=== PATIENT | male | born 1940 | race Caucasian/White ===

== ENCOUNTER 2019-04-04 11:33 | Inpatient (IN) ==
[2019-04-04] MEDS ORDERED: SODIUM CHLORIDE 0.9% 1000ML 1,000 ML IV ONE (11:56)
--- NOTE | 2019-04-04 12:12 | XRay Report ---
XR chest 1V portable CLINICAL HISTORY: 78 years-old Male presenting with SEPSIS. TECHNIQUE: Portable upright AP view of the chest was obtained. COMPARISON: None. FINDINGS: Median sternotomy wires and mediastinal surgical clips noted. Atherosclerosis of the aortic arch. Car diac silhouette normal in size. Lungs mildly hyperinflated with mild flattening of the diaphragms. Mi ldly heterogeneous lung parenchyma. No focal opacity. No pleural effusion or pneumothorax. Osseous st ructures normal. Upper abdomen normal. IMPRESSION: 1. Findings may suggest underlying emphysema. No focal infiltrate to suggest pneumonia. ACT 112: Negative or not required by law. Electronically signed by: Karthikeyan Ortiz M.D. 04/04/2019 12:10 PM
--- NOTE | 2019-04-04 12:18 | Emergency Department Note ---
Entered by Shyla Echavarria acting as a scribe for Messi Johnson DO History of Present Illness General Chief complaint: Lethargic Stated complaint: Lethargic / [facility] Time Seen by Provider: 04/04/19 11:49 Source: patient Limitations: altered mental status History of Present Illness Provider complaint: Lethargic Onset (ago): week(s) 1 Associated symptoms: no chest pain, no headaches, no nausea/vomiting and no shortness of breath The patient is a 78 year old male who presents to the Emergency Room with complaints of lethargy that began 1 week ago. The patient denies experiencing any chest pain, shortness of breath, nausea/vomiting, or headaches. HPI and ROS limited secondary to altered mental status. Home Medications Home Medications Medication Instructions Recorded Confirmed Type aspirin 325 mg tablet 325 mg PO DAILY 12/30/18 04/04/19 History atenolol 25 mg tablet 25 mg PO DAILY 12/30/18 04/04/19 History cyanocobalamin (vitamin B-12) 100 mcg SQ .COMPLEX 12/30/18 04/04/19 History 1,000 mcg/mL injection solution donepezil 5 mg tablet 5 mg PO HS 12/30/18 04/04/19 History pravastatin 40 mg tablet 40 mg PO HS 12/30/18 04/04/19 History risperidone 1 mg tablet 0.5 mg PO BID tab 12/30/18 04/04/19 History acetaminophen 325 mg capsule 650 mg PO Q4H PRN cap 02/26/19 04/04/19 History ibuprofen 400 mg tablet 400 mg PO Q6H PRN 02/26/19 04/04/19 History cholecalciferol (vitamin D3) 2,000 unit PO DAILY 04/04/19 04/04/19 History [Vitamin D3] diclofenac sodium 1 % TOPICAL BID PRN 04/04/19 04/04/19 History melatonin 10 mg PO HS PRN 04/04/19 04/04/19 History Allergies Allergy/AdvReac Type Severity Reaction Status Date / Time fluvastatin Allergy Unknown Verified 01/04/19 08:04 simvastatin [From Zocor] Allergy Unknown Verified 01/04/19 08:04 atorvastatin Allergy Verified 01/04/19 08:04 Past Med/Surg History Medical History 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 Dyslipidemia Essential hypertension Vitamin B 12 deficiency Surgical History S/P cholecystectomy S/P coronary artery bypass graft x 4 S/P hemorrhoidectomy S/P inguinal hernia repair S/P tonsillectomy Family History Mother , age 75 from lung cancer with brain metastases Lung cancer Father , age 62 of an CA Myocardial infarction Social History Current Living Situation: Long Term current occupational status: retired other: 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 Physical Exam Vital Signs Vital Signs - 24 hr 04/04/19 11:37 04/04/19 11:40 04/04/19 11:42 Temperature 36.4 C L Temperature Source Oral Pulse Rate 88 94 H 90 Pulse Rate from SpO2 Sensor 89 97 H Respiratory Rate 21 21 20 Respiratory Effort / Characteristics Non-Labored Spontaneous Respiratory Depth Normal Respiratory Pattern Regular Blood Pressure 93/63 L 93/63 L Blood Pressure Mean 67 73 Blood Pressure Position Lying Pulse Oximetry 99 99 99 Oxygen Delivery Method Room Air Sepsis Recent Fever Within 48 Hours No Sepsis New/Unexplained Change in Mental Status No Sepsis Action Taken by Nursing No Action Required 04/04/19 11:51 04/04/19 11:52 04/04/19 12:00 Temperature Temperature Source Pulse Rate 86 88 90 Pulse Rate from SpO2 Sensor 95 H 91 H 92 H Respiratory Rate 20 20 24 Respiratory Effort / Characteristics Respiratory Depth Respiratory Pattern Blood Pressure 97/59 L 96/60 L Blood Pressure Mean 71 74 Blood Pressure Position Pulse Oximetry 98 98 97 Oxygen Delivery Method Room Air Sepsis Recent Fever Within 48 Hours Sepsis New/Unexplained Change in Mental Status Sepsis Action Taken by Nursing 04/04/19 12:01 04/04/19 12:26 04/04/19 12:30 Temperature Temperature Source Pulse Rate 88 78 82 Pulse Rate from SpO2 Sensor 89 81 78 Respiratory Rate 24 22 19 Respiratory Effort / Characteristics Respiratory Depth Respiratory Pattern Blood Pressure 95/52 L 94/54 L Blood Pressure Mean 77 68 Blood Pressure Position Pulse Oximetry 98 99 100 Oxygen Delivery Method Sepsis Recent Fever Within 48 Hours Sepsis New/Unexplained Change in Mental Status Sepsis Action Taken by Nursing 04/04/19 12:31 04/04/19 12:43 04/04/19 12:44 Temperature Temperature Source Pulse Rate 79 87 87 Pulse Rate from SpO2 Sensor 81 90 84 Respiratory Rate 18 29 H 24 Respiratory Effort / Characteristics Respiratory Depth Respiratory Pattern Blood Pressure 94/54 L Blood Pressure Mean 68 Blood Pressure Position Pulse Oximetry 99 98 98 Oxygen Delivery Method Sepsis Recent Fever Within 48 Hours Sepsis New/Unexplained Change in Mental Status Sepsis Action Taken by Nursing 04/04/19 13:10 04/04/19 13:13 04/04/19 13:30 Temperature Temperature Source Pulse Rate 85 88 90 Pulse Rate from SpO2 Sensor 78 80 85 Respiratory Rate 28 H 20 20 Respiratory Effort / Characteristics Respiratory Depth Respiratory Pattern Blood Pressure 109/67 105/60 Blood Pressure Mean 79 71 Blood Pressure Position Pulse Oximetry 99 97 99 Oxygen Delivery Method Sepsis Recent Fever Within 48 Hours Sepsis New/Unexplained Change in Mental Status Sepsis Action Taken by Nursing 04/04/19 13:31 04/04/19 14:00 04/04/19 14:01 Temperature Temperature Source Pulse Rate 91 H 74 97 H Pulse Rate from SpO2 Sensor 85 71 Respiratory Rate 16 16 Respiratory Effort / Characteristics Respiratory Depth Respiratory Pattern Blood Pressure 108/59 L Blood Pressure Mean 79 Blood Pressure Position Pulse Oximetry 98 100 Oxygen Delivery Method Sepsis Recent Fever Within 48 Hours Sepsis New/Unexplained Change in Mental Status Sepsis Action Taken by Nursing 04/04/19 14:30 04/04/19 14:31 04/04/19 15:00 Temperature Temperature Source Pulse Rate 79 80 79 Pulse Rate from SpO2 Sensor 83 74 86 Respiratory Rate 18 22 18 Respiratory Effort / Characteristics Respiratory Depth Respiratory Pattern Blood Pressure 100/75 Blood Pressure Mean 81 Blood Pressure Position Pulse Oximetry 99 99 98 Oxygen Delivery Method Sepsis Recent Fever Within 48 Hours Sepsis New/Unexplained Change in Mental Status Sepsis Action Taken by Nursing 04/04/19 15:01 Temperature Temperature Source Pulse Rate 75 Pulse Rate from SpO2 Sensor 77 Respiratory Rate 24 Respiratory Effort / Characteristics Respiratory Depth Respiratory Pattern Blood Pressure Blood Pressure Mean Blood Pressure Position Pulse Oximetry 97 Oxygen Delivery Method Sepsis Recent Fever Within 48 Hours Sepsis New/Unexplained Change in Mental Status Sepsis Action Taken by Nursing GENERAL: Patient was awake and follows commands. He does not appear to be uncomfortable or in pain. EYES: The conjunctivae are clear. The pupils are round and reactive. EARS, NOSE, MOUTH AND THROAT: The nose is without any evidence of any deformity. Mucous membranes are moist. Tongue is midline. NECK: The neck is nontender and supple. RESPIRATORY: Normal respiratory effort is noted there is no evidence of wheezing rhonchi or rales CARDIOVASCULAR: Irregular rhythm was noted to auscultation. There was no definite murmur. GASTROINTESTINAL: The abdomen is soft. Abdomen is nontender. MUSCULOSKELETAL/EXTREMITIES: There is no evidence of gross deformity full range of motion is noted in the hips and shoulders. SKIN: There is no obvious evidence of any rash. Skin was warm and dry. NEUROLOGIC: Patient is oriented to person place but not time or situation. Strength was symmetric but diminished. Course Course 1155: Past medical records reviewed. The patient was evaluated in room C07. A complete history and physical exam was performed. 1438: I spoke with Doris Shore about the patient's case and Dr. Desir- Hospitalist will accept the patient for further evaluation. Administered Medications Discontinued Medications Sodium Chloride (Nss 1000ml) 1,000 mls @ 999 mls/hr IV .Q1H1M ONE Stop: 04/04/19 12:56 Last Infusion: 04/04/19 13:02 Dose: 0 mls/hr Documented by: [id number] Admin: 04/04/19 12:05 Dose: 999 mls/hr Documented by: [id number] Medical Decision Making Differential Diagnosis Differential diagnosis: Etiologies such as viral syndrome, otitis, pharyngitis, pneumonia, influenza, meningitis, urinary tract infection, septic arthritis, soft tissue infectious process, intra-abdominal process, sepsis, bacteremia, as well as others were entertained. Medical Records Attestation: I reviewed the patient's medical records. Home Medications Current Medication List: was personally reviewed by me Laboratory Data Attestation: I reviewed the patient's lab results. Result diagrams: 04/04/19 12:23 04/04/19 12:23 Lab Results 04/04/19 04/04/19 04/04/19 Range/Units 12:23 12:23 12:23 WBC 8.91 (4.8-10.8) K/uL RBC 4.13 L (4.7-6.1) M/uL Hgb 13.3 L (14.0-18.0) g/dL Hct 39.8 L (42-52) % MCV 96.4 (80-100) fL MCH 32.2 (25-34) pg MCHC 33.4 (32-36) g/dL RDW Std Deviation 49.1 H (36.4-46.3) fL RDW Coeff of Pranav 14.0 (11.5-14.5) % Plt Count 145 (130-400) K/uL MPV 10.5 H (7.4-10.4) fL Immature Gran % (Auto) 0.1 % Neut % (Auto) 72.0 % Lymph % (Auto) 16.7 % [place] % (Auto) 10.7 % Eos % (Auto) 0.4 % Baso % (Auto) 0.1 % Immature Gran # (Auto) 0.01 (0.00-0.02) K/uL Neut # (Auto) 6.41 (1.4-6.5) K/uL Lymph # (Auto) 1.49 (1.2-3.4) K/uL [place] # (Auto) 0.95 H (0.11-0.59) K/uL Eos # (Auto) 0.04 (0-0.5) K/uL Baso # (Auto) 0.01 (0-0.2) K/uL PT 13.0 H (9.0-12.0) Seconds INR 1.3 H (0.9-1.1) APTT 29.6 (21.0-31.0) Seconds PTT Ratio 1.1 Sodium 142 (136-145) mmol/L Potassium 3.7 (3.5-5.1) mmol/L Chloride 111 H (98-107) mmol/L Carbon Dioxide 27 (21-32) mmol/L Anion Gap 4.0 (3-11) BUN 22 H (7-18) mg/dl Creatinine 0.88 (0.6-1.4) mg/dl Est Cr Clr Drug Dosing 62.6 ml/min Est GFR ( Amer) 95.4 Est GFR (Non-Af Amer) 82.3 BUN/Creatinine Ratio 24.4 H (10-20) Glucose 94 (70-99) mg/dl Lactate (0.4-2.0) mmol/L Calcium 8.3 L (8.5-10.1) mg/dl Magnesium 1.9 (1.8-2.4) mg/dl Total Bilirubin 0.9 (0.2-1) mg/dl AST 25 (15-37) U/L ALT 19 (12-78) U/L Alkaline Phosphatase 53 (45-117) U/L Troponin I 0.024 (0-0.045) ng/ml Total Protein 4.8 L (6.4-8.2) gm/dl Albumin 2.5 L (3.4-5.0) gm/dl Globulin 2.3 L (2.5-4.0) gm/dl Albumin/Globulin Ratio 1.1 (0.9-2) TSH 1.670 (0.300-4.500) uIu/ml Urine Color Urine Appearance (Clear) Urine pH (4.5-7.5) Ur Specific [place] (1.000-1.030) Urine Protein (Negative) Urine Glucose (UA) (Negative) Urine Ketones (Negative) Urine Blood (Negative) Urine Nitrite (Negative) Urine Bilirubin (Negative) Urine Urobilinogen (Negative) Ur Leukocyte Esterase (Negative) 04/04/19 04/04/19 Range/Units 12:23 12:45 WBC (4.8-10.8) K/uL RBC (4.7-6.1) M/uL Hgb (14.0-18.0) g/dL Hct (42-52) % MCV (80-100) fL MCH (25-34) pg MCHC (32-36) g/dL RDW Std Deviation (36.4-46.3) fL RDW Coeff of Pranav (11.5-14.5) % Plt Count (130-400) K/uL MPV (7.4-10.4) fL Immature Gran % (Auto) % Neut % (Auto) % Lymph % (Auto) % [place] % (Auto) % Eos % (Auto) % Baso % (Auto) % Immature Gran # (Auto) (0.00-0.02) K/uL Neut # (Auto) (1.4-6.5) K/uL Lymph # (Auto) (1.2-3.4) K/uL [place] # (Auto) (0.11-0.59) K/uL Eos # (Auto) (0-0.5) K/uL Baso # (Auto) (0-0.2) K/uL PT (9.0-12.0) Seconds INR (0.9-1.1) APTT (21.0-31.0) Seconds PTT Ratio Sodium (136-145) mmol/L Potassium (3.5-5.1) mmol/L Chloride (98-107) mmol/L Carbon Dioxide (21-32) mmol/L Anion Gap (3-11) BUN (7-18) mg/dl Creatinine (0.6-1.4) mg/dl Est Cr Clr Drug Dosing ml/min Est GFR ( Amer) Est GFR (Non-Af Amer) BUN/Creatinine Ratio (10-20) Glucose (70-99) mg/dl Lactate 1.9 (0.4-2.0) mmol/L Calcium (8.5-10.1) mg/dl Magnesium (1.8-2.4) mg/dl Total Bilirubin (0.2-1) mg/dl AST (15-37) U/L ALT (12-78) U/L Alkaline Phosphatase (45-117) U/L Troponin I (0-0.045) ng/ml Total Protein (6.4-8.2) gm/dl Albumin (3.4-5.0) gm/dl Globulin (2.5-4.0) gm/dl Albumin/Globulin Ratio (0.9-2) TSH (0.300-4.500) uIu/ml Urine Color Dark Yellow Urine Appearance Clear (Clear) Urine pH 5.0 (4.5-7.5) Ur Specific [place] 1.027 (1.000-1.030) Urine Protein Negative (Negative) Urine Glucose (UA) Negative (Negative) Urine Ketones Trace H (Negative) Urine Blood Negative (Negative) Urine Nitrite Negative (Negative) Urine Bilirubin Negative (Negative) Urine Urobilinogen Negative (Negative) Ur Leukocyte Esterase Negative (Negative) Imaging Data Radiologist's Impression: Radiology results as stated below per my review and the radiologist's interpretation: XR chest 1V portable CLINICAL HISTORY: 78 years-old Male presenting with SEPSIS. TECHNIQUE: Portable upright AP view of the chest was obtained. COMPARISON: None. FINDINGS: Median sternotomy wires and mediastinal surgical clips noted. Atherosclerosis of the aortic arch. Cardiac silhouette normal in size. Lungs mildly hyperinflated with mild flattening of the diaphragms. Mildly heterogeneous lung parenchyma. No focal opacity. No pleural effusion or pneumothorax. Osseous structures normal. Upper abdomen normal. IMPRESSION: 1. Findings may suggest underlying emphysema. No focal infiltrate to suggest pneumonia. ACT 112: Negative or not required by law. Electronically signed by: Karthikeyan Ortiz M.D. 04/04/2019 12:[address] head/brain wo con CLINICAL HISTORY: 78 years-old Male presenting with altered mental status, low blood pressure. TECHNIQUE: Multidetector CT imaging of the head was performed without the use of intravenous contrast. IV contrast: None. One or more dose lowering techniques were used consistent with the principles of ALARA (as low as reasonably achievable), including automatic exposure control, mA or kV adjustment to individual patient size, and/or use of iterative reconstruction. COMPARISON: Brain MR from 01/26/2019. CT DOSE (mGy.cm): The estimated cumulative dose is 1019.07 mGy.cm. FINDINGS: Data Network Architect topogram: Unremarkable. Proportional ventricular and sulcal prominence, likely age-related parenchymal volume loss. No hemorrhage. Periventricular and subcortical white matter hypoattenuation, nonspecific but likely indicative of chronic small vessel ischemic change. No acute territorial infarct. No mass effect or midline shift. No extra-axial fluid collection. Paranasal sinuses and mastoid air cells clear. Calvarium intact. IMPRESSION: 1. Chronic small vessel ischemic change. No acute intracranial abnormality. ACT 112: Negative or not required by law. Electronically signed by: Karthikeyan Ortiz M.D. 04/04/2019 1:[address] abd pelvis wo con CLINICAL HISTORY: 78 years-old Male presenting with low BP, altered mental status. TECHNIQUE: Multidetector CT of the abdomen and pelvis was performed without the use of intravenous contrast. IV contrast: None. One or more dose lowering techniques were used consistent with the principles of ALARA (as low as reasonably achievable), including automatic exposure control, mA or kV adjustment to individual patient size, and/or use of iterative reconstruction. COMPARISON: None. CT DOSE (mGy.cm): The estimated cumulative dose is 1019.07. FINDINGS: Data Network Architect topogram: Unremarkable. Lung bases: Top normal heart size. Postsurgical changes of coronary artery bypass grafting with median sternotomy noted. Coronary artery and aortic valve calcification. Papillary muscle calcification may also be present. No pericardial or pleural effusion. Minimal dependent changes likely atelectasis. Liver: Normal morphology. Normal density. Biliary: Mild biliary ductal prominence likely a reservoir effect in the post cholecystectomy state. Gallbladder surgically absent. Pancreas: Mild parenchymal atrophy. Spleen: Normal noncontrast appearance. Adrenal glands: Normal noncontrast appearance. Kidneys and ureters: Normal noncontrast appearance of the renal parenchyma. Extrarenal pelvis is noted with mild left pelviectasis. No nephrolithiasis. Ureters nondistended. Bladder: Incompletely evaluated secondary to underdistention. Pelvic organs: Prostate enlargement likely secondary to benign prostatic hyperplasia. Bowel: Moderate stool burden in the rectum, which is distended though without wall thickening or perirectal fat infiltration. Mild diverticulosis of the proximal sigmoid and distal descending colon without wall thickening or pericolonic inflammatory change. Mild stool burden in the transverse and right colon. Diverticulosis at the hepatic flexure. The appendix is normal. No bowel obstruction. Peritoneal cavity: No free fluid or intraperitoneal gas. Lymph nodes: No gross lymphadenopathy allowing for noncontrast technique. Vasculature: Atherosclerosis of the normal caliber abdominal aorta. Abdominal wall: Normal. Musculoskeletal: Degenerative changes of the spine. Degenerative changes of the sacroiliac joints. IMPRESSION: 1. Allowing for noncontrast technique, no acute intra-abdominal pathology. Prostatomegaly. 2. Diverticulosis coli. No diverticulitis. 3. Moderate stool burden in the rectum. Consider disimpaction. Mild constipation elsewhere. ACT 112: Negative or not required by law. Electronically signed by: Karthikeyan Ortiz M.D. 04/04/2019 1:21 PM ECG Data Indication: + weakness Rate (beats per minute): 93 Rhythm: + atrial fibrillation ECG ST segments: + Nonspecific ST abnormalities ECG Findings: no PVCs Comparison ECG Date: no prior available Blood Pressure Blood Pressure Findings: Low blood pressure Blood Pressure Disposition: further management by hospitalist GUI [place] The patient is a 78-year-old male who presented to the emergency department from his personal retirement for an evaluation of altered mental status and generalized weakness. The patient was found to be in atrial fibrillation as well as had hypotension prior to arrival. The patient was treated with IV fluids prior to arrival and further IV hydration was given in the emergency dep artment as the patient's blood pressure continued to be low. A septic work-up was undertaken. No definite source for infection could be found. The patient continued to be in atrial fibrillation. He was also found to have significant stool burden on CAT scan of the abdomen and pelvis. I discussed the patient's laboratory and radiographic studies with the on-call [facility] hospitalist group. They have agreed to evaluate the patient in the emergency department for further management and disposition. The patient's blood pressure did improve with IV hydration. Impression & Plan Acute hypotension, Altered mental status, Constipation, Atrial fibrillation Discharge Plan Visit Data Chief Complaint: Lethargic Stated Complaint[facility] Provider: Messi Johnson Discharge Problem: Acute hypotension, Altered mental status, Constipation, Atrial fibrillation Forms Stand Alone Forms: My [facility] Prescriptions Prescriptions: No Action atenolol 25 mg tablet 25 mg PO DAILY RF: 0 cyanocobalamin (vitamin B-12) 1,000 mcg/mL solution 100 mcg SQ .COMPLEX RF: 0 pravastatin 40 mg tablet 40 mg PO HS RF: 0 aspirin 325 mg tablet 325 mg PO DAILY RF: 0 donepezil 5 mg tablet 5 mg PO HS RF: 0 risperidone 1 mg tablet 0.5 mg PO BID RF: 0 acetaminophen 325 mg capsule 650 mg PO Q4H PRN (Reason: Pain and Fever) RF: 0 ibuprofen 400 mg tablet 400 mg PO Q6H PRN (Reason: Pain and Inflammation) RF: 0 diclofenac sodium 1 % Gel 1 % TOPICAL BID PRN (Reason: Arthritis Pain) RF: 0 cholecalciferol (vitamin D3) [Vitamin D3] 2,000 unit Tablet 2,000 unit PO DAILY RF: 0 melatonin 10 mg Tablet 10 mg PO HS PRN (Reason: Insomnia) RF: 0 Discharge Problem: Altered mental status Qualifiers: Altered mental status type: unspecified Qualified Code(s): R41.82 - Altered mental status, unspecified Constipation Qualifiers: Constipation type: unspecified constipation type Qualified Code(s): K59.00 - Constipation, unspecified Atrial fibrillation Qualifiers: Atrial fibrillation type: unspecified Qualified Code(s): I48.91 - Unspecified atrial fibrillation The scribe's documentation has been prepared under my direction and personally reviewed by me in its entirety. I confirm that the note above accurately reflects all work, treatment, procedures, and medical decision making performed by me.
[2019-04-04 12:31] LABS: Basophils # (auto) 0.01 K/uL (0-0.2); Basophils % (auto) 0.1 %; Eosinophils # (auto) 0.04 K/uL (0-0.5); Eosinophils % (auto) 0.4 %; Hematocrit (blood only) 39.8 % (42-52); Hemoglobin 13.3 g/dL (14.0-18.0); Immature Granulocytes # (auto) 0.01 K/uL (0.00-0.02); Immature Granulocytes % (auto) 0.1 %; Lymphocytes # (auto) 1.49 K/uL (1.2-3.4); Lymphocytes % (auto) 16.7 %; Mean Corpuscular Hemoglobin 32.2 pg (25-34); Mean Corpuscular Hgb Conc 33.4 g/dL (32-36); Mean Corpuscular Volume 96.4 fL (80-100); Mean Platelet Volume 10.5 fL (7.4-10.4); Monocytes # (auto) 0.95 K/uL (0.11-0.59); Monocytes % (auto) 10.7 %; Neutrophils # (auto) 6.41 K/uL (1.4-6.5); Platelet Count 145 K/uL (130-400); RDW Standard Deviation 49.1 fL (36.4-46.3); Red Blood Count 4.13 M/uL (4.7-6.1); White Blood Count 8.91 K/uL (4.8-10.8)
[2019-04-04 12:47] LABS: INR 1.3 (0.9-1.1); Partial Thromboplastin Ratio 1.1; Partial Thromboplastin Time 29.6 Seconds (21.0-31.0)
[2019-04-04 12:54] LABS: Albumin Level 2.5 gm/dl (3.4-5.0); BUN Creatinine Ratio 24.4 (10-20); Calcium 8.3 mg/dl (8.5-10.1); Creatinine Clr Calc Pharmacy 62.6 ml/min; Est GFR (African American) 95.4; Est GFR (Non-African American) 82.3; Magnesium 1.9 mg/dl (1.8-2.4); Potassium 3.7 mmol/L (3.5-5.1)
[2019-04-04 13:00] LABS: Appearance Urine Clear (Clear); Blood Urine Negative (Negative); Color Urine Dark Yellow; Glucose Urine UA Negative (Negative); Ketones Urine Trace (Negative); Leukocyte Esterase Urine Negative (Negative); Nitrite Urine Negative (Negative); Protein Urine Negative (Negative); Specific Gravity Urine 1.027 (1.000-1.030); Urobilinogen Urine Negative (Negative)
[2019-04-04 13:05] LABS: Albumin Globulin Ratio 1.1 (0.9-2); Bilirubin,Total 0.9 mg/dl (0.2-1); Globulin 2.3 gm/dl (2.5-4.0); Thyroid Stimulating Hormone 1.67 uIu/ml (0.300-4.500); Total Protein 4.8 gm/dl (6.4-8.2); Troponin I 0.024 ng/ml (0-0.045)
--- NOTE | 2019-04-04 13:16 | CT Scan Report ---
CT head/brain wo con CLINICAL HISTORY: 78 years-old Male presenting with altered mental status, low blood pressure. TECHNIQUE: Multidetector CT imaging of the head was performed without the use of intravenous contrast . IV contrast: None. One or more dose lowering techniques were used consistent with the principles of ALARA (as low as reasonably achievable), including automatic exposure control, mA or kV adjustment t o individual patient size, and/or use of iterative reconstruction. COMPARISON: Brain MR from 01/26/2019. CT DOSE (mGy.cm): The estimated cumulative dose is 1019.07 mGy.cm. FINDINGS: [employer] Frame Wirer topogram: Unremarkable. Proportional ventricular and sulcal prominence, likely age-related parenchymal volume loss. No hemorr hanna. Periventricular and subcortical white matter hypoattenuation, nonspecific but likely indicative of chronic small vessel ischemic change. No acute territorial infarct. No mass effect or midline rudy ft. No extra-axial fluid collection. Paranasal sinuses and mastoid air cells clear. Calvarium intact. IMPRESSION: 1. Chronic small vessel ischemic change. No acute intracranial abnormality. ACT 112: Negative or not required by law. Electronically signed by: Karthikeyan Ortiz M.D. 04/04/2019 1:14 PM
[2019-04-04 13:19] LABS: Bilirubin Urine Negative (Negative); Ictotest Urine Negative (Negative)
--- NOTE | 2019-04-04 13:23 | CT Scan Report ---
CT abd pelvis wo con CLINICAL HISTORY: 78 years-old Male presenting with low BP, altered mental status. TECHNIQUE: Multidetector CT of the abdomen and pelvis was performed without the use of intravenous co ntrast. IV contrast: None. One or more dose lowering techniques were used consistent with the princip les of ALA (as low as reasonably achievable), including automatic exposure control, mA or kV adjust ment to individual patient size, and/or use of iterative reconstruction. COMPARISON: None. CT DOSE (mGy.cm): The estimated cumulative dose is 1019.07. FINDINGS: Tufter Operator topogram: Unremarkable. Lung bases: Top normal heart size. Postsurgical changes of coronary artery bypass grafting with media n sternotomy noted. Coronary artery and aortic valve calcification. Papillary muscle calcification ma y also be present. No pericardial or pleural effusion. Minimal dependent changes likely atelectasis. Liver: Normal morphology. Normal density. Biliary: Mild biliary ductal prominence likely a reservoir effect in the post cholecystectomy state. Gallbladder surgically absent. Pancreas: Mild parenchymal atrophy. Spleen: Normal noncontrast appearance. Adrenal glands: Normal noncontrast appearance. Kidneys and ureters: Normal noncontrast appearance of the renal parenchyma. Extrarenal pelvis is note d with mild left pelviectasis. No nephrolithiasis. Ureters nondistended. Bladder: Incompletely evaluated secondary to underdistention. Pelvic organs: Prostate enlargement likely secondary to benign prostatic hyperplasia. Bowel: Moderate stool burden in the rectum, which is distended though without wall thickening or debbi rectal fat infiltration. Mild diverticulosis of the proximal sigmoid and distal descending colon with out wall thickening or pericolonic inflammatory change. Mild stool burden in the transverse and right colon. Diverticulosis at the hepatic flexure. The appendix is normal. No bowel obstruction. Peritoneal cavity: No free fluid or intraperitoneal gas. Lymph nodes: No gross lymphadenopathy allowing for noncontrast technique. Vasculature: Atherosclerosis of the normal caliber abdominal aorta. Abdominal wall: Normal. Musculoskeletal: Degenerative changes of the spine. Degenerative changes of the sacroiliac joints. IMPRESSION: 1. Allowing for noncontrast technique, no acute intra-abdominal pathology. Prostatomegaly. 2. Diverticulosis coli. No diverticulitis. 3. Moderate stool burden in the rectum. Consider disimpaction. Mild constipation elsewhere. ACT 112: Negative or not required by law. Electronically signed by: Karthikeyan Ortiz M.D. 04/04/2019 1:21 PM
--- NOTE | 2019-04-04 15:59 | History & Physical Report ---
Date of Service April 04, 2019 Assessment & Plan (1) Weakness: 78-year-old male with history of dementia, CAD/CABG, mild systolic CHF, hypertension, dyslipidemia presenting with weakness and lethargy times few days. History obtained from [facility] staff, ED staff. Awaiting patient's daughter's arrival to gather more information. Weakness, lethargy Likely secondary to dehydration, underlying new onset A. fib --Patient presented with hypotension, which seems to have responded to IV fluid boluses, 2 L of NSS so far We will continue to provide D5 NSS with potassium, continue to monitor closely in telemetry unit --Patient is afebrile, no leukocytosis, no focus of infection identified at this time Blood cultures: Pending Check procalcitonin We will hold off on antibiotics at this time unless procalcitonin is elevated --Check ammonia level --Check brain MRI in light of new onset A. fib, rule out CVA --Need to verify with [facility] if any medication changes have been done recently --Management of new onset A. fib noted below Hypotension --Likely from volume depletion, from poor oral intake --Responding to IV fluid challenge, management per #1 --No signs of sepsis at this time, no focus of infection identified as well Echo ordered New onset atrial fibrillation, rate controlled --No history of A. fib --Check echocardiogram --Continue atenolol 25 mg daily --Patient's chads vasc2 score is at least 4: We will verify with patient's family if he has any history of bleeding if not, will initiate heparin drip --Cardiology service consulted, he follows with Dr. Mccall Moderate stool burden --CT abdomen and pelvis: Moderate stool burden in the rectum. Consider disimpaction. Mild constipation elsewhere. --We will order tapwater enema and daily laxatives History of CAD, CABG --Patient denies cardiac symptoms --Troponin negative --Resume aspirin 325 mg p.o. daily, will reduce to 81 mg daily as heparin is being initiated Continue atenolol, pravastatin History of mild systolic CHF --Based on echocardiogram September 2018 --Currently on the dry side, monitor while on IV fluids Dementia --need to verify medications with [facility] --Continue donepezil, risperidone Memantine listed on [facility] records, verify with [facility] facility DVT prophylaxis Patient to be started on heparin drip, if not, start Lovenox subcutaneous CODE STATUS Full code for now, needs to be verified space with family Disposition Resident of [facility], anticipate to return back to [facility] when medically stable We will order PT/OT evaluation-patient apparently was able to perform most activities of daily living independently before this episode Dr. Isi Orlando will be taking over the patient's care starting tomorrow April 05, 2019 History of Present Illness Patient is a 78-year-old male with a history of CAD/CABG, mild systolic CHF, hypertension, dyslipidemia, dementia Presented with weakness and lethargy. History obtained from ED physician and RN, attempted to call [facility] twice as well as patient's family but they are not available at this time, will continue to reach them. Apparently patient has been observed to be weak and lethargic for the past few days. He used to be mostly independent with activities of daily living but for the past few days have been noted to be sluggish, weak. EMS was called today, blood pressure systolic upon arrival was apparently in the 70s, patient was given 1 L of IV fluid bolus. At the ED, blood pressure was systolic 90s, was given another 1 L of IV fluid bolus, with improvement of the systolic BP 109. Hospitalist consulted for admission On exam, the patient is seen sleeping but easily awakened with verbal stimuli. He is not oriented x3, but per RN's report from [facility] this is his baseline. He is conversant, tries to answer questions, speaks in sentences with no effort. He denies having any active shortness of breath, chest pain, headache, dizziness, focal weakness or numbness, abdominal pain. He denies any other symptoms states he feels fine overall. CT head: No acute CVA EKG shows atrial fibrillation, rate controlled. Patient does not have any history of atrial fibrillation. Primary Care Provider: [facility] Allergies Allergy/AdvReac Type Severity Reaction Status Date / Time fluvastatin Allergy Unknown Verified 01/04/19 08:04 simvastatin [From Zocor] Allergy Unknown Verified 01/04/19 08:04 atorvastatin Allergy Verified 01/04/19 08:04 Home Medications Home Medications Medication Instructions Recorded Confirmed Type aspirin 325 mg tablet 325 mg PO DAILY 12/30/18 04/04/19 History atenolol 25 mg tablet 25 mg PO DAILY 12/30/18 04/04/19 History cyanocobalamin (vitamin B-12) 100 mcg SQ .COMPLEX 12/30/18 04/04/19 History 1,000 mcg/mL injection solution donepezil 5 mg tablet 5 mg PO HS 12/30/18 04/04/19 History pravastatin 40 mg tablet 40 mg PO HS 12/30/18 04/04/19 History risperidone 1 mg tablet 0.5 mg PO BID tab 12/30/18 04/04/19 History acetaminophen 325 mg capsule 650 mg PO Q4H PRN cap 02/26/19 04/04/19 History ibuprofen 400 mg tablet 400 mg PO Q6H PRN 02/26/19 04/04/19 History cholecalciferol (vitamin D3) 2,000 unit PO DAILY 04/04/19 04/04/19 History [Vitamin D3] diclofenac sodium 1 % TOPICAL BID PRN 04/04/19 04/04/19 History melatonin 10 mg PO HS PRN 04/04/19 04/04/19 History Past Med/Surg History Medical History Atherosclerotic heart disease of [place] coronary artery without angina pectoris 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 Dyslipidemia Essential hypertension Vitamin B 12 deficiency Surgical History S/P cholecystectomy S/P coronary artery bypass graft x 4 S/P hemorrhoidectomy S/P inguinal hernia repair S/P tonsillectomy Family History Mother , age 75 from lung cancer with brain metastases Lung cancer Father , age 62 of an MD Myocardial infarction Social History Current Living Situation: [facility] current occupational status: retired other: 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 Feels Safe at Home: Yes Smoking Status: Former smoker Tobacco Type: cigarettes and smokeless tobacco ; Hx Alcohol Use: No Review of Systems Review of Systems: All systems reviewed & are unremarkable except as noted in HPI & below Physical Exam Physical Exam: General- oriented x 0, not in distress, speaks in sentences with no effort or accessory muscle use Head- atraumatic Eyes- PERRL, EOMI, anicteric ENT- oropharynx clear Positive dry oral mucosa Neck- supple, no JVD, no adenopathy, no thyromegaly; carotids +2/2, no bruits appreciated Lungs- clear to auscultation bilaterally, no rales/wheezes Heart- normal rate, irregularly irregular rhythm; no murmur, no gallop, no rub appreciated Abdomen- normal bowel sounds, nondistended, soft, nontender, no masses or hepatosplenomegaly Extremities- no pretibial edema, no calf tenderness; peripheral pulses intact Neuro- alert, oriented x 0; CN 2-12 grossly intact; motor 5/5 bilaterally;sensation 100% on all extremities; no other gross focal neurologic deficits Skin- warm & dry Results & Data Vital Signs (Past 12 Hours) Vital Signs Temp Pulse Resp BP Pulse Ox 04/04/19 15:01 75 24 97 04/04/19 15:00 79 18 100/75 98 04/04/19 14:31 80 22 99 04/04/19 14:30 79 18 99 04/04/19 14:01 97 H 04/04/19 14:00 74 16 108/59 L 100 04/04/19 13:31 91 H 16 98 04/04/19 13:30 90 20 105/60 99 04/04/19 13:13 88 20 109/67 97 04/04/19 13:10 85 28 H 99 04/04/19 12:44 87 24 98 04/04/19 12:43 87 29 H 94/54 L 98 04/04/19 12:31 79 18 99 04/04/19 12:30 82 19 94/54 L 100 04/04/19 12:26 78 22 95/52 L 99 04/04/19 12:01 88 24 98 04/04/19 12:00 90 24 96/60 L 97 04/04/19 11:52 88 20 98 04/04/19 11:51 86 20 97/59 L 98 04/04/19 11:42 36.4 C L 90 20 93/63 L 99 04/04/19 11:40 94 H 21 99 04/04/19 11:37 88 21 93/63 L 99 Code Status & VTE Plan Code Status Full code-needs to be verified with family VTE Prophylaxis Plan VTE Prophylaxis will be ordered: Yes
[2019-04-04] MEDS ORDERED: Heparin IV Low Dose *NO* Bolus IV ONE (17:16)
[2019-04-04] MEDS ORDERED: HEPARIN SODIUM/DEXTROSE 25,000 UNITS/500 ML BAG IV SCH (17:30)
[2019-04-04] MEDS: D5NSS + 20MEQ KCL 20 MEQ/1,000 ML BAG IV SCH (18:11)
[2019-04-04 18:16] LABS: Basophils # (auto) 0.02 K/uL (0-0.2); Basophils % (auto) 0.2 %; Eosinophils # (auto) 0.11 K/uL (0-0.5); Eosinophils % (auto) 1.3 %; Hematocrit (blood only) 43.1 % (42-52); Hemoglobin 14.3 g/dL (14.0-18.0); Immature Granulocytes # (auto) 0.01 K/uL (0.00-0.02); Immature Granulocytes % (auto) 0.1 %; Lymphocytes # (auto) 3.09 K/uL (1.2-3.4); Lymphocytes % (auto) 36.4 %; Mean Corpuscular Hemoglobin 31.9 pg (25-34); Mean Corpuscular Hgb Conc 33.2 g/dL (32-36); Mean Corpuscular Volume 96.2 fL (80-100); Mean Platelet Volume 10.9 fL (7.4-10.4); Monocytes # (auto) 0.77 K/uL (0.11-0.59); Monocytes % (auto) 9.1 %; Neutrophils % (auto) 52.9 %; Platelet Count 160 K/uL (130-400); RDW Coefficient of Variation 13.9 % (11.5-14.5); RDW Standard Deviation 48.8 fL (36.4-46.3); Red Blood Count 4.48 M/uL (4.7-6.1)
[2019-04-04 18:31] LABS: Calcium 8.7 mg/dl (8.5-10.1); Creatinine Clr Calc Pharmacy 76.9 ml/min; Est GFR (African American) 104.2; Est GFR (Non-African American) 89.9
[2019-04-04] MEDS: DONEPEZIL HCL 5 MG TAB PO SCH (20:13)
[2019-04-04] MEDS: risperiDONE 0.5 MG TABLET PO SCH (20:14)
[2019-04-04] MEDS: PRAVASTATIN SOD 40 MG TAB PO SCH (20:14)
--- NOTE | 2019-04-04 21:54 | Magnetic Resonance Report ---
MR brain wo con CLINICAL HISTORY: 78 years-old Male presenting with LETHARGY, R/O CVA. TECHNIQUE: Multisequence, multiplanar MR imaging of the brain was performed without the use of intrav enous contrast. IV contrast: None. COMPARISON: Noncontrast CT head from earlier today and brain MR from 01/26/2019. FINDINGS: Localizer images: Unremarkable. Bone marrow signal intensity within the calvarium within normal limits. Normal midline sagittal structures. Proportional ventricular and sulcal prominence, likely age-relate d parenchymal volume loss. No mass effect or midline shift. No restricted diffusion or hemorrhage. Pe riventricular and subcortical white matter T2/FLAIR hyperintensity, nonspecific but likely indicative of chronic small vessel ischemic change. No extra-axial fluid collection. Loss of the signal flow void within the left transverse sinus, sigmo id sinus, and left jugular bulb. Bilateral [place] lenses are absent. IMPRESSION: 1. Chronic small vessel ischemic change. No acute intracranial abnormality. 2. The lack of flow void within the left transverse and sigmoid sinus and jugular bulb are presumabl y related to slow flow. If there is high clinical index of suspicion for dural venous sinus thrombosi s, noncontrast MRV could be obtained. ACT 112: Negative or not required by law. Electronically signed by: Karthikeyan Ortiz M.D. 04/04/2019 9:52 PM
[2019-04-05 00:49] LABS: Partial Thromboplastin Ratio 1.5; Partial Thromboplastin Time 39.9 Seconds (21.0-31.0)
[2019-04-05] MEDS ORDERED: HEPARIN IV BOLUS 4,000 UNITS in SYRINGE 0 ML IV ONE (01:30)
[2019-04-05] MEDS: D5NSS + 20MEQ KCL 20 MEQ/1,000 ML BAG IV SCH ×2 (06:05→13:58)
[2019-04-05 07:36] LABS: Basophils # (auto) 0.02 K/uL (0-0.2); Basophils % (auto) 0.2 %; Eosinophils # (auto) 0.13 K/uL (0-0.5); Eosinophils % (auto) 1.6 %; Hematocrit (blood only) 44.5 % (42-52); Immature Granulocytes # (auto) 0.02 K/uL (0.00-0.02); Immature Granulocytes % (auto) 0.2 %; Lymphocytes # (auto) 2.74 K/uL (1.2-3.4); Lymphocytes % (auto) 32.8 %; Mean Corpuscular Hemoglobin 32.5 pg (25-34); Mean Corpuscular Hgb Conc 33.7 g/dL (32-36); Mean Corpuscular Volume 96.3 fL (80-100); Mean Platelet Volume 10.7 fL (7.4-10.4); Monocytes # (auto) 0.88 K/uL (0.11-0.59); Monocytes % (auto) 10.5 %; Neutrophils # (auto) 4.57 K/uL (1.4-6.5); Neutrophils % (auto) 54.7 %; Platelet Count 138 K/uL (130-400); RDW Coefficient of Variation 13.9 % (11.5-14.5); RDW Standard Deviation 49.1 fL (36.4-46.3); Red Blood Count 4.62 M/uL (4.7-6.1); White Blood Count 8.36 K/uL (4.8-10.8)
[2019-04-05] MEDS: risperiDONE 0.5 MG TABLET PO SCH ×2 (07:56→21:32)
[2019-04-05 07:58] LABS: Partial Thromboplastin Ratio 3.5
[2019-04-05 08:15] LABS: BUN Creatinine Ratio 17.7 (10-20); Calcium 9.3 mg/dl (8.5-10.1); Creatinine Clr Calc Pharmacy 84.8 ml/min; Est GFR (African American) 107.3; Est GFR (Non-African American) 92.6; Potassium 3.8 mmol/L (3.5-5.1)
--- NOTE | 2019-04-05 08:37 | Neurology Consultation ---
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 The etiology of the demen tia is likely mixed, primarily from degenerative (senile dementia of the Alzheimer's type) as well as vascular issues. His mini-mental status examination in December was 10/30 points. He has had some side effects to memantine and this has been stopped. I am not sure if donepezil is doing much for him also. Patient has parkinsonism which I believe was secondary to Risperdal and his underlying degenerative condition. Back in December his Risperdal was 1 mg twice a day and it was lowered to 0.5 mg twice a day. Currently I believe his parkinsonism is improved now compared to December having less rigidity and bradykinesia. Patient had some generalized weakness on admission. I believe this was secondary to his hypotension and new onset atrial fibrillation. Today he is quite strong with no focal neurologic findings or meningeal signs. His lethargy is improved with hydration and elevated blood pressure. He is on anticoagulation for atrial fibrillation. MRI of the brain shows atrophy and old ischemia but no acute stroke. The slow flow noted in the transverse and sigmoid sinuses was likely secondary to his very low blood pressure and is probably better. There is no sign of venous infarct. Recommendations: 1. Keep hydrated and keep his mean arterial pressure between 95 and 100. 2. Discontinue donepezil, as I am not certain this is doing anything for him it may be adding to side effects. 3. Patient has known behavioral issues, and since his parkinsonism is improved on the lower dose of Risperdal, I would keep the Risperdal dose the same for now. 4. Increase activity as able including physical therapy. 5. Cardiology has been consulted and we need to convert from heparin to an oral anticoagulant in lieu of his atrial fibrillation. 6. Consider B12 level as he has a history of B12 deficiency. Otherwise, I have no further neurologic recommendations to make at this time. I can follow him as an outpatient if desired. Overall, I spent a total of 75 minutes with this case including review of records,, review of MRI films, direct evaluation the patient at bedside, and discussing the case with RN at bedside and Dr. Oralndo including differential diagnosis and treatment options. History of Present Illness Reason for Consultation: 78-year-old, who I was asked to see at the request of Dr. Desir, for neurologic consultation regarding altered mental status Requesting Physician: Dr. Desir Attending Physician: Isi Orlando, DO History of Present Illness I 1st saw this patient January 04, 2019. Please see my complete history and physical from that date. The patient has been having cognitive issues since his coronary artery bypass graft procedure in 2000, according to his daughter from whom most of the history was obtained when I 1st saw him. This became mildly progressive over time being a little more significant about 6-7 years ago. By the fall of 2017 his dementia was significant and he was having some confusion and hallucinations. After an admission in May of 2018 for acute confusion, he moved from [facility] to the [facility] to be closer to his daughter. He lives in [facility]. He does have some behavioral issues but this is controlled with medication. At the time I saw him in December she had an advanced dementia with a mini-mental status examination of 10/30 points. Physical examination was remarkable for rigidity, bradykinesia, and gait disturbance all consistent with a parkinsonism. I suspected this was due to his Risperdal (which was 1 mg twice daily at that time). He was on donepezil 5 mg at bedtime and memantine 5 mg once a day. I increases memantine 5 mg twice daily. An MRI of the brain was obtained which showed [id number] generalized atrophy and old small vessel ischemic disease. The patient had some increasing fatigue/as lethargy in January of 2019. I stopped memantine and routine labs were unremarkable. Apparently the patient has been becoming more lethargic over the last week. He arrived to the emergency room on April 04 at 1137 with a temperature of 36.4, pulse 88 and irregular (noted to be in AFib), respiratory rate 21, blood pressure 93/63, and O2 saturation 99%. He remained in atrial fibrillation. He was described as being able to follow commands but was oriented only to person. Chest x-ray showed some mild COPD changes CT scan of the head was unremarkable except for old ischemia CT scan of the abdomen and pelvis showed diverticulosis and stool retention CBC showed mild anemia and Chem profile was largely unremarkable. TSH, urinalysis, and lactate were unremarkable. MRI of the brain showed mild old small vessel ischemic disease and generalized atrophy as before (no change from January). There was slow venous flow noted in the left transverse and sigmoid sinuses. Patient was given fluids and anticoagulation with heparin. Blood pressure this morning is 124/86. His pulse varies from 80s to 90s to 120s. He remains in atrial fibrillation and he is afebrile. Allergies Allergy/AdvReac Type Severity Reaction Status Date / Time fluvastatin Allergy Unknown Verified 01/04/19 08:04 simvastatin [From Zocor] Allergy Unknown Verified 01/04/19 08:04 atorvastatin Allergy Verified 01/04/19 08:04 Home Medications Home Medications Medication Instructions Recorded Confirmed Type aspirin 325 mg tablet 325 mg PO DAILY 12/30/18 04/04/19 History atenolol 25 mg tablet 25 mg PO DAILY 12/30/18 04/04/19 History cyanocobalamin (vitamin B-12) 100 mcg SQ .COMPLEX 12/30/18 04/04/19 History 1,000 mcg/mL injection solution donepezil 5 mg tablet 5 mg PO HS 12/30/18 04/04/19 History pravastatin 40 mg tablet 40 mg PO HS 12/30/18 04/04/19 History risperidone 1 mg tablet 0.5 mg PO BID tab 12/30/18 04/04/19 History acetaminophen 325 mg capsule 650 mg PO Q4H PRN cap 02/26/19 04/04/19 History ibuprofen 400 mg tablet 400 mg PO Q6H PRN 02/26/19 04/04/19 History cholecalciferol (vitamin D3) 2,000 unit PO DAILY 04/04/19 04/04/19 History [Vitamin D3] diclofenac sodium 1 % TOPICAL BID PRN 04/04/19 04/04/19 History melatonin 10 mg PO HS PRN 04/04/19 04/04/19 History Patient History Medical History 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 Dyslipidemia Essential hypertension Vitamin B 12 deficiency Surgical History S/P cholecystectomy S/P coronary artery bypass graft x 4 S/P hemorrhoidectomy S/P inguinal hernia repair S/P tonsillectomy Family History Mother , age 75 from lung cancer with brain metastases Lung cancer Father , age 62 of an [place] Myocardial infarction Social History Preferred Language: Pashto Communication Ability: Effective Workers' Compensation Commissioner Required: No Beliefs That Will Affect Care: None Current Living Situation: Personal Care Facility current occupational status: retired Other Information That Helps Us Care for You: No other: 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 Constitutional: no fever, no fatigue and no weakness Eyes: + worsening vision; no diplopia and no eye pain Ear, Nose, Mouth, Throat: no ear pain, no tinnitus, no hearing loss, no dizziness, no snoring, no hoarseness and no dysphagia Respiratory: + dyspnea on exertion; no cough and no dyspnea Cardiovascular: no chest pain, no palpitations and no lightheadedness Gastrointestinal: no abdominal pain, no nausea and no vomiting Genitourinary: no dysuria and no urinary incontinence Musculoskeletal: no back pain, no neck pain, no radicular pain, no joint pain and no myalgia Integumentary: no rash and no lesions Neurologic: + memory loss; no gait abnormality, no localized weakness, no generalized weakness, no tingling, no numbness, no tremor(s), no abnormal movements, no headache(s), no abnormal speech and no confusion Psychiatric: + difficulty concentrating and + confusion; no depression, no irritability, no anxiety and no hallucinations Endocrine: no fatigue and no flushing Hematologic / Lymphatic: no easy bleeding and no easy bruising Allergy / Immunological: no urticaria and no problem reported Physical Exam Physical Exam: The patient is right-handed. The patient is awake, alert, and attentive. When the patient does speak (only when asked questions) it seems normal without any obvious aphasia or dysarthria. He can name objects and repeat phrases. Mood is reasonable but affect is flat. He is oriented to person but not place or time. He does not know his age, where he lives now, what building he is in currently, the month, the year, or the day. He can follow some one-step commands. Memory is poor long and short- term. Patient has moderate bradykinesia in general. The discs are sharp with positive venous pulsations bilaterally. There are no exudates, hemorrhages, or blood vessel changes seen. Pupils are 3 mm bilaterally and reactive to light. Extraocular eye muscles are intact without nystagmus. Visual acuity and visual lopez seem normal grossly to confrontation. There are no deficits to sensation in the face in all 3 distributions of the fifth cranial nerve bilaterally. Corneal reflexes are positive bilaterally. Facial strength and symmetry was normal bilaterally. Hearing seems normal to whisper and finger rub bilaterally. Palate moves well without asymmetry. There is normal sternocleidomastoid and trapezius (shoulder shrug) strength bilaterally. Tongue is midline with good strength bilaterally. Neck has a full range of motion without discomfort. There are no cervical bruits bilaterally. There are no cranial or ocular bruits. Heart is without murmur. There is a regular rhythm and rate. Cervical, thoracic, and lumbar spine are nontender to palpation. Gait was not tested but stance sitting up in bed is reasonable. With outstretched arms there is no drift. There are no resting, postural, or action tremors. There is no ataxia with finger to nose testing. There is good facility in the hands. No other abnormal involuntary movements are noted. 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 Motor strength is 5/5 diffusely in the legs bilaterally including hip flexors, quadriceps, hamstrings, gastrocnemius, tibialis anterior, tibialis posterior, and Peroneii muscles. Toe extensors are normal and there is good bulk in the extensor digitorum brevis muscles bilaterally. The limbs have a mild increase in tone diffusely. There is no spasticity or focal atrophy. Sensory examination is intact to touch and pin throughout all 4 limbs diffusely. Reflexes are 1/4 in the biceps, triceps, brachioradialis, quadriceps, and Achilles tendons bilaterally. There is no clonus bilaterally. Toes are downgoing with plantar stimulation bilaterally. Peripheral pulses are present and of normal quality distally in all 4 limbs. There is no peripheral edema noted in the limbs. Results & Data Vital Signs (Past 12 Hours) Vital Signs Temp Pulse Resp BP Pulse Ox 04/05/19 07:39 36.5 C 85 19 124/86 99 04/05/19 04:14 36.4 C L 80 18 116/70 96 04/04/19 23:37 36.5 C 86 20 109/57 L 98 Diagnostic Findings MR brain wo con CLINICAL HISTORY: 78 years-old Male presenting with LETHARGY, R/O CVA. TECHNIQUE: Multisequence, multiplanar MR imaging of the brain was performed without the use of intravenous contrast. IV contrast: None. COMPARISON: Noncontrast CT head from earlier today and brain MR from 01/26/2019. FINDINGS: Localizer images: Unremarkable. Bone marrow signal intensity within the calvarium within normal limits. Normal midline sagittal structures. Proportional ventricular and sulcal prominence, likely age-related parenchymal volume loss. No mass effect or midline shift. No restricted diffusion or hemorrhage. Periventricular and subcortical white matter T2/FLAIR hyperintensity, nonspecific but likely indicative of chronic small vessel ischemic change. No extra-axial fluid collection. Loss of the signal flow void within the left transverse sinus, sigmoid sinus, and left jugular bulb. Bilateral [place] lenses are absent. IMPRESSION: 1. Chronic small vessel ischemic change. No acute intracranial abnormality. 2. The lack of flow void within the left transverse and sigmoid sinus and jugular bulb are presumably related to slow flow. If there is high clinical index of suspicion for dural venous sinus thrombosis, noncontrast MRV could be obtained. ACT 112: Negative or not required by law. Electronically signed by: Karthikeyan Ortiz M.D. 04/04/2019 9:52 PM PG Care Time/CCT Total # of Minutes Spent Total Time Spent with Patient: Total time spent is greater than 50% in coordination of care (as documented) at patient's floor/unit and/or counseling patient: (1) Atrial fibrillation Atrial fibrillation type: unspecified Qualified Code(s): I48.91 - Unspecified atrial fibrillation
[2019-04-05] MEDS ORDERED: ATENOLOL 25 MG TABLET PO SCH (09:00)
--- NOTE | 2019-04-05 11:19 | Cardiology Consultation ---
Date of Consultation April 05, 2019 Assessment & Plan (1) Atrial fibrillation: (2) Atherosclerotic heart disease of [place] coronary artery without angina pectoris: History of Present Illness Attending Physician: Isi Orlando DO History of Present Illness 78 yo M w/ pMHx. of dementia, CAD s/p CABG, mild systolic CHF, HTN, dyslipidemia, presenting w/ weakness an lethargy of days to weeks. Was seen by Dr. Salvador in September. When talking to the patient they are unable to answer where they are or why they are in the hospital. He denies chest pain and palpitations, but unclear if he understood the question. Allergies Allergy/AdvReac Type Severity Reaction Status Date / Time fluvastatin Allergy Unknown Verified 01/04/19 08:04 simvastatin [From Zocor] Allergy Unknown Verified 01/04/19 08:04 atorvastatin Allergy Verified 01/04/19 08:04 Home Medications Home Medications Medication Instructions Recorded Confirmed Type aspirin 325 mg tablet 325 mg PO DAILY 12/30/18 04/04/19 History atenolol 25 mg tablet 25 mg PO DAILY 12/30/18 04/04/19 History cyanocobalamin (vitamin B-12) 100 mcg SQ .COMPLEX 12/30/18 04/04/19 History 1,000 mcg/mL injection solution donepezil 5 mg tablet 5 mg PO HS 12/30/18 04/04/19 History pravastatin 40 mg tablet 40 mg PO HS 12/30/18 04/04/19 History risperidone 1 mg tablet 0.5 mg PO BID tab 12/30/18 04/04/19 History acetaminophen 325 mg capsule 650 mg PO Q4H PRN cap 02/26/19 04/04/19 History ibuprofen 400 mg tablet 400 mg PO Q6H PRN 02/26/19 04/04/19 History cholecalciferol (vitamin D3) 2,000 unit PO DAILY 04/04/19 04/04/19 History [Vitamin D3] diclofenac sodium 1 % TOPICAL BID PRN 04/04/19 04/04/19 History melatonin 10 mg PO HS PRN 04/04/19 04/04/19 History Patient History Medical History 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 Dyslipidemia Essential hypertension Vitamin B 12 deficiency Surgical History S/P cholecystectomy S/P coronary artery bypass graft x 4 S/P hemorrhoidectomy S/P inguinal hernia repair S/P tonsillectomy Family History Mother , age 75 from lung cancer with brain metastases Lung cancer Father , age 62 of an [place] Myocardial infarction Social History Preferred Language: Azeri Communication Ability: Effective Client Finance Analyst Required: No Beliefs That Will Affect Care: None Current Living Situation: Personal Care Facility current occupational status: retired Other Information That Helps Us Care for You: No other: 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 Feels Safe at Home: Yes Safety Concerns: Feels Safe At This Time Smoking Status: Former smoker Tobacco Type: cigarettes ; Smoking End Date: 1985 ; Hx Alcohol Use: No Hx Substance Use: No Review of Systems Review of Systems: Unobtainable due to reduced consciousness Physical Exam Constitutional: + thin Eyes: PERRL, conjunctivae normal, anicteric sclerae Neck: trachea midline, no thyromegaly Respiratory: normal respiratory effort, lungs clear to auscultation Cardiovascular: Rate/Rhythm: + tachycardic and + irregularly irregular Heart Sounds: no click, no gallop, no murmur and no cardiac rub Vessels: + carotid bruit; no JVD and no abdominal aortic bruit Extremities: normal capillary refill; no calf tenderness and no edema Chest (Breasts): Additional Comments: midline scar on chest otherwise normal appearing Gastrointestinal (Abdomen): Inspection/Auscultation: abdomen not distended Percussion/Palpation: abdomen soft; abdomen nontender Skin: no rashes, warm and dry Psychiatric: oriented to person, not oriented to place, date, time, or event Genitourinary: joseph in place Results & Data Vital Signs (Past 12 Hours) Vital Signs Temp Pulse Pulse Resp BP Pulse Ox 04/05/19 07:40 79 04/05/19 07:39 36.5 C 85 19 124/86 99 04/05/19 04:14 36.4 C L 80 18 116/70 96 04/04/19 23:37 36.5 C 86 20 109/57 L 98 (1) Atrial fibrillation Atrial fibrillation type: unspecified Qualified Code(s): I48.91 - Unspecified atrial fibrillation
--- NOTE | 2019-04-05 11:42 | Cardiology Consultation ---
Date of Consultation April 05, 2019 Assessment & Plan (1) CAD (coronary artery disease): (2) S/P coronary artery stent placement: (3) Cardiomyopathy: (4) Atrial fibrillation: (5) Essential hypertension: ASSESSMENT/PLAN: 1. Atrial fibrillation: His heart rate is mildly elevated at times. Metoprolol has been started in place of atenolol by primary service. This is not unreasonable given his reduced LV systolic function. Use metoprolol tartrate for now for titration purposes but would recommend metoprolol succinate on discharge. For now, metoprolol tartrate 25 mg twice daily and can increase as necessary. Anticoagulation for stroke risk reduction if no contraindications. 2. CAD status post PCI and CABG x 4: No reported angina but poor historian. Continue aspirin 81 mg daily indefinitely. Beta-nicholas as above. Continue statin therapy. He did not present with acute coronary syndrome. 3. Cardiomyopathy: Moderately reduced LV systolic function. Metoprolol succinate as above on discharge. Any consideration for OLAMIDE-inhibitor can then be done by his primary test borer, Dr. Salvador. He appears euvolemic. 4. Hypertension: Blood pressure acceptable. Titrating rate control medication as above. 5. Disposition: Cardiology will continue to follow to assist with rate control. Call with any other questions or concerns Follow up with Dr. Salvador on discharge. Thank you for allowing me to participate in the care of your patient. Please call for any other questions or concerns. Sincerely, Juan Diego Bell M.D. History of Present Illness Reason for Consultation: Atrial Fibrillation Requesting Physician: Dr. Desir Attending Physician: Isi Orlando DO History of Present Illness Mr. Julien is a pleasant 78-year-old gentleman with a history significant for CAD status post CABG x4 (2000 [place]) and PCI x 2 (2002), hypertension, dyslipidemia, and dementia. His primary test borer is Dr. Salvador. He presented to [facility] from [facility] due to weakness and lethargy according to records. He is a poor historian. History obtained from record. He presented with decreased mental status and Neurology evaluated him and recommended that memantadine be discontinued. His mental status is reportedly improved according to nursing staff. He denies chest pain or shortness of breath. He denies any pain or discomfort. Atrial fibrillation was noted on presentation, prompting cardiology consultation. Heparin drip was also initiated by primary service. Review of systems: As above and otherwise unobtainable due to patient's dementia. Family history: Father at the age of 59 from [place]. Social history: No current tobacco use. per outpatient records. He states that he has 2 daughters and 1 son. Resides at [facility]. He was unaccompanied in his hospital room. Allergies Allergy/AdvReac Type Severity Reaction Status Date / Time fluvastatin Allergy Unknown Verified 01/04/19 08:04 simvastatin [From Zocor] Allergy Unknown Verified 01/04/19 08:04 atorvastatin Allergy Verified 01/04/19 08:04 Home Medications Home Medications Medication Instructions Recorded Confirmed Type aspirin 325 mg tablet 325 mg PO DAILY 12/30/18 04/04/19 History atenolol 25 mg tablet 25 mg PO DAILY 12/30/18 04/04/19 History cyanocobalamin (vitamin B-12) 100 mcg SQ .COMPLEX 12/30/18 04/04/19 History 1,000 mcg/mL injection solution donepezil 5 mg tablet 5 mg PO HS 12/30/18 04/04/19 History pravastatin 40 mg tablet 40 mg PO HS 12/30/18 04/04/19 History risperidone 1 mg tablet 0.5 mg PO BID tab 12/30/18 04/04/19 History acetaminophen 325 mg capsule 650 mg PO Q4H PRN cap 02/26/19 04/04/19 History ibuprofen 400 mg tablet 400 mg PO Q6H PRN 02/26/19 04/04/19 History cholecalciferol (vitamin D3) 2,000 unit PO DAILY 04/04/19 04/04/19 History [Vitamin D3] diclofenac sodium 1 % TOPICAL BID PRN 04/04/19 04/04/19 History melatonin 10 mg PO HS PRN 04/04/19 04/04/19 History Patient History Medical History CAD (coronary artery disease) Cardiomyopathy 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 Dyslipidemia Essential hypertension Vitamin B 12 deficiency Surgical History S/P cholecystectomy S/P coronary artery bypass graft x 4 S/P hemorrhoidectomy S/P inguinal hernia repair S/P tonsillectomy Family History Mother , age 75 from lung cancer with brain metastases Lung cancer Father , age 62 of an [place] Myocardial infarction Social History Preferred Language: Citizen Of [place] Communication Ability: Impaired 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 Alert and oriented to self only. HEENT: Anicteric sclera. Neck: No JVD. No bruits auscultated. Normal carotid upstrokes bilaterally. Cardiac: PMI was nondisplaced. No ventricular heave. Irregularly irregular. Normal S1-S2. No murmurs, rubs, or gallops. Pulmonary: Clear to auscultation bilaterally without wheezes, rales, or rhonchi. Abdomen: Soft, nontender, nondistended, with normoactive bowel sounds. No bruits noted. Extremities: 2+ radial pulses bilaterally. 2+ posterior tibialis pulses bilaterally. No edema or cyanosis. Psychiatric: Affect appears appropriate. Results & Data Vital Signs (Past 12 Hours) Vital Signs Temp Pulse Pulse Resp BP Pulse Ox 04/05/19 07:40 79 04/05/19 07:39 36.5 C 85 19 124/86 99 04/05/19 04:14 36.4 C L 80 18 116/70 96 Laboratory Results Laboratory Results - last 24 hr 04/04/19 04/04/19 04/04/19 12:22 17:58 17:58 WBC 8.50 RBC 4.48 L Hgb 14.3 Hct 43.1 MCV 96.2 MCH 31.9 MCHC 33.2 RDW Std Deviation 48.8 H RDW Coeff of Pranav 13.9 Plt Count 160 MPV 10.9 H Immature Gran % (Auto) 0.1 Neut % (Auto) 52.9 Lymph % (Auto) 36.4 [place] % (Auto) 9.1 Eos % (Auto) 1.3 Baso % (Auto) 0.2 Immature Gran # (Auto) 0.01 Neut # (Auto) 4.50 Lymph # (Auto) 3.09 [place] # (Auto) 0.77 H Eos # (Auto) 0.11 Baso # (Auto) 0.02 APTT PTT Ratio Sodium Potassium Chloride Carbon Dioxide Anion Gap BUN Creatinine Est Cr Clr Drug Dosing Est GFR ( Amer) Est GFR (Non-Af Amer) BUN/Creatinine Ratio Glucose Calcium Ammonia 21.0 Procalcitonin < 0.05 04/04/19 04/05/19 04/05/19 17:58 00:18 07:24 WBC 8.36 RBC 4.62 L Hgb 15.0 Hct 44.5 MCV 96.3 MCH 32.5 MCHC 33.7 RDW Std Deviation 49.1 H RDW Coeff of Pranav 13.9 Plt Count 138 MPV 10.7 H Immature Gran % (Auto) 0.2 Neut % (Auto) 54.7 Lymph % (Auto) 32.8 [place] % (Auto) 10.5 Eos % (Auto) 1.6 Baso % (Auto) 0.2 Immature Gran # (Auto) 0.02 Neut # (Auto) 4.57 Lymph # (Auto) 2.74 [place] # (Auto) 0.88 H Eos # (Auto) 0.13 Baso # (Auto) 0.02 APTT 39.9 H PTT Ratio 1.5 Sodium 143 Potassium 4.0 Chloride 110 H Carbon Dioxide 29 Anion Gap 3.0 BUN 21 H Creatinine 0.71 Est Cr Clr Drug Dosing 76.9 Est GFR ( Amer) 104.2 Est GFR (Non-Af Amer) 89.9 BUN/Creatinine Ratio 30.0 H Glucose 93 Calcium 8.7 Ammonia Procalcitonin 04/05/19 04/05/19 07:24 07:24 WBC RBC Hgb Hct MCV MCH MCHC RDW Std Deviation RDW Coeff of Pranav Plt Count MPV Immature Gran % (Auto) Neut % (Auto) Lymph % (Auto) [place] % (Auto) Eos % (Auto) Baso % (Auto) Immature Gran # (Auto) Neut # (Auto) Lymph # (Auto) [place] # (Auto) Eos # (Auto) Baso # (Auto) APTT 94.0 H* PTT Ratio 3.5 Sodium 145 Potassium 3.8 Chloride 113 H Carbon Dioxide 30 Anion Gap 1.0 L BUN 12 Creatinine 0.66 Est Cr Clr Drug Dosing 84.8 Est GFR ( Amer) 107.3 Est GFR (Non-Af Amer) 92.6 BUN/Creatinine Ratio 17.7 Glucose 105 H Calcium 9.3 Ammonia Procalcitonin Diagnostic Findings Telemetry personally reviewed: Atrial fibrillation, with mild tachycardia at times. Prior echo images from September of 2018 done as an outpatient personally reviewed and compared to current study . ECHO personally reviewed from 04/05/2019: Normal LV size with moderately reduced systolic function. EF 35-40%. Akinesis of the inferolateral and basal septal wall. Otherwise, global hypokinesis. Mildly reduced RV systolic function. Mild MR. Normal RVSP. ECG 04/04/2019: AFib 93 bpm. Inferolateral infarct. Cannot exclude anterior infarct. Brain MRI 04/04/2019: chronic small vessel ischemic change. No acute intracranial abnormality. Chest x-ray 04/04/2019: Findings may suggest underlying emphysema as per Radiology. Medications Administered Current Inpatient Medications Donepezil HCl (Aricept) 5 mg PO HS ANGELINA Stop: 05/04/19 20:59 Last Admin: 04/04/19 20:13 Dose: 5 mg Documented by: Heparin Sodium/Dextrose (Heparin Sodium/Dextrose) 25,000 units in 500 mls @ 15 mls/hr IV .Q24H ANGELINA; Protocol Stop: 05/04/19 17:29 Last Titration: 04/05/19 09:07 Dose: 750 units/hr, 15 mls/hr Documented by: Potassium Chloride/Dextrose/Sod Cl (D5nss + 20meq Kcl) 20 meq in 1,000 mls @ 100 mls/hr IV .Q10H ANGELINA Stop: 05/04/19 17:39 Last Admin: 04/05/19 06:05 Dose: 100 mls/hr Documented by: Metoprolol Tartrate (Lopressor) 25 mg PO ONCE ANGELINA Stop: 05/06/19 21:59 Metoprolol Tartrate (Lopressor) 25 mg PO BID ANGELINA Stop: 05/06/19 08:59 Pravastatin Sodium (Pravachol) 40 mg PO HS ANGELINA Stop: 05/04/19 20:59 Last Admin: 04/04/19 20:14 Dose: 40 mg Documented by: Risperidone (Risperdal) 0.5 mg PO BID [facility] Stop: 05/04/19 20:59 Last Admin: 04/05/19 07:56 Dose: 0.5 mg Documented by: PG Care Time/CCT Total # of Minutes Spent Total Time Spent with Patient: Total time spent is greater than 50% in coordination of care (as documented) at patient's floor/unit and/or counseling patient: (1) Atrial fibrillation Atrial fibrillation type: unspecified Qualified Code(s): I48.91 - Unspecified atrial fibrillation
--- NOTE | 2019-04-05 14:52 | Hospitalist Progress Note ---
Date of Service April 05, 2019 Assessment & Plan (1) Weakness: Uncertain etiology, questionable dehydration. No clear evidence of infection. New onset atrial fibrillation possibly contributing. PT/OT and nutrition assessment. Continue further investigation into reversible causes. Neurology stopped donepezil to minimize unwanted side effects. (2) Atrial fibrillation: new onset, and according to daughter this has been an ongoing concern by the patient's PCP, however, until now unconfirmed. He is rate controlled with metoprolol as a replacement to atenolol, and with reduced EF, Toprol XL should be given at discharge. Heparin drip stopped and started Eliquis after discussion with his daughter. (3) Altered mental status: Some delirium present which may be related to hospitalization. Cont supportive care and search for reversible causes. (4) Parkinsonism: Possibly secondary to risperidone. Cont for now, per Neurology who follows him as outpatient. PT/OT to assess with rigidity on physical exam. 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 (6) CAD (coronary artery disease): s/p CABG previously. stable. continue medical management with statin, BB and ASA 81g. BP too low to tolerate ACEI in setting of reduced pump function. (7) Cardiomyopathy: Chronic, stable. No evidence of heart failure on exam. Atenolol changed to Toprol XL at time of discharge and consider ACEI as outpatient. (8) DVT prophylaxis: Eliquis Full Code Dispo-pending PT/OT but likely will need SNF for a time. Will transfer to [facility] Hospitalist group at daughter's request. She is setting him up with a [facility] PCP in addition to [facility] Subjective Patient is denying any pain at this time. I am detecting some delirium as he is having hallucinations about a black mama coming in the room. He is also having difficulty following instructions on physical exam. Baseline mental status according to daughter is oriented to self and disoriented to place and time. She states today that he looks about the same as he has for the past week. Daughter is at bedside to help her by the history. Review of systems also reveals no evidence of urinary symptoms, change in GI symptoms, chest pain, marco antonio rtness of breath or other issues today. Overnight chest x-ray was negative for acute changes, CT scan of the head was unremarkable except for old ischemia, MRI of the brain revealed mild old small vessel ischemic disease and generalized atrophy with no change from January. CT scan of the abdomen pelvis revealed no acute intra-abdominal process with some evidence of stool retention. New onset atrial fibrillation was found and daughter reports the nurse practitioner from the [place] and is currently his primary care provider has felt some intermittent flutter. He has been seen with Dr. Wolfe for this in the past, however this is never been proven until now. He was anticoagulated overnight with heparin and after conversation with the daughter she agreed to pursue anticoagulation at this time. Eliquis was chosen over Coumadin for various reasons. I did try to pursue a cost analysis, however, [facility] who [facility] enlighten me that he does not carry medical insurance. He receives all of his medications through the [facility]. He does have a Zapata in place and the nurse reported being able to get him up to bedside commode today, however, the patient appears weak and physically deconditioned. His Zapata was placed for incontinence which keeping it in place may help with comfort and reduce delirium overnight. Need will be reassessed daily. Review of Systems Review of Systems: All systems reviewed & are unremarkable except as noted in HPI & below (Limited review of systems secondary to delirium) Physical Exam Physical Exam: CONSTITUTIONAL: thin, vitals as above, generally well- appearing, very flat affect EYES: normal conjunctivae ENT: MMM RESPIRATORY: clear to auscultation bilaterally, no crackles, rales or wheezes, normal respiratory effort CARDIOVASCULAR: regular rate and rhythm, S1 and 2 heard without murmurs, gallops or rubs, no JVD, no peripheral edema CHEST: inspection of chest was normal GASTROINTESTINAL: normal bowel sounds, soft, nontender, nondistended MUSCULOSKELETAL: strength 5/5 throughout, head is normocephalic and atraumatic, rigidity of lower extremities bilaterally SKIN: warm and dry NEUROLOGIC: CN 2-12 grossly intact, normal cognition, normal speech, +delirium PSYCHIATRIC: cooperative but cannot comply with following all instructions. Some evidence of hallucinations after saying her was "...." (somewhere not the hospital) and that he was here because a black llama was going to do something to him. +flat affect Results & Data Vital Signs (Past 12 Hours) Vital Signs Temp Pulse Pulse Resp BP Pulse Ox 04/05/19 11:40 36.9 C 98 H 19 118/71 99 04/05/19 07:40 79 04/05/19 07:39 36.5 C 85 19 124/86 99 04/05/19 04:14 36.4 C L 80 18 116/70 96 Laboratory Results Short CBC 04/04/19 04/05/19 Range/Units 17:58 07:24 WBC 8.50 8.36 (4.8-10.8) K/uL Hgb 14.3 15.0 (14.0-18.0) g/dL Hct 43.1 44.5 (42-52) % Plt Count 160 138 (130-400) K/uL BMP 04/04/19 04/05/19 17:58 07:24 Sodium 143 145 Potassium 4.0 3.8 Chloride 110 H 113 H Carbon Dioxide 29 30 BUN 21 H 12 Creatinine 0.71 0.66 Glucose 93 105 H Calcium 8.7 9.3 Medications Administered Current Inpatient Medications Donepezil HCl (Aricept) 5 mg PO HS ANGELINA Stop: 05/04/19 20:59 Last Admin: 04/04/19 20:13 Dose: 5 mg Documented by: Heparin Sodium/Dextrose (Heparin Sodium/Dextrose) 25,000 units in 500 mls @ 15 mls/hr IV .Q24H ANGELINA; Protocol Stop: 05/04/19 17:29 Last Titration: 04/05/19 09:07 Dose: 750 units/hr, 15 mls/hr Documented by: Potassium Chloride/Dextrose/Sod Cl (D5nss + 20meq Kcl) 20 meq in 1,000 mls @ 100 mls/hr IV .Q10H ANGELINA Stop: 05/04/19 17:39 Last Admin: 04/05/19 13:58 Dose: 100 mls/hr Documented by: Metoprolol Tartrate (Lopressor) 25 mg PO ONCE ANGELINA Stop: 05/06/19 21:59 Metoprolol Tartrate (Lopressor) 25 mg PO BID ANGELINA Stop: 05/06/19 08:59 Pravastatin Sodium (Pravachol) 40 mg PO HS ANGELINA Stop: 05/04/19 20:59 Last Admin: 04/04/19 20:14 Dose: 40 mg Documented by: Risperidone (Risperdal) 0.5 mg PO BID ANGELINA Stop: 05/04/19 20:59 Last Admin: 04/05/19 07:56 Dose: 0.5 mg Documented by: (1) Atrial fibrillation Atrial fibrillation type: unspecified Qualified Code(s): I48.91 - Unspecified atrial fibrillation (2) Altered mental status Altered mental status type: unspecified Qualified Code(s): R41.82 - Altered mental status, unspecified
[2019-04-05 15:30] LABS: Partial Thromboplastin Ratio 1.6; Partial Thromboplastin Time 42.4 Seconds (21.0-31.0)
[2019-04-05] MEDS ORDERED: HEPARIN IV BOLUS 3,000 UNITS in SYRINGE 0 ML IV STA (15:34)
[2019-04-05] MEDS ORDERED: APIXABAN 5 MG TABLET PO SCH (18:00)
[2019-04-05] MEDS ORDERED: METOPROLOL SUCC 25MG EXT REL TAB PO ONE (20:00)
[2019-04-05] MEDS ORDERED: METOPROLOL TARTRATE 25 MG TAB PO SCH (20:00)
[2019-04-05] MEDS: DONEPEZIL HCL 5 MG TAB PO SCH (21:00)
[2019-04-05] MEDS: PRAVASTATIN SOD 40 MG TAB PO SCH (21:32)
--- NOTE | 2019-04-05 21:32 | Electrocardiogram Report ---
Test Reason : Blood Pressure : / mmHG Vent. Rate : 093 BPM Atrial Rate : 340 BPM P-R Int : 000 ms QRS Dur : 104 ms QT Int : 364 ms P-R-T Axes : 000 039 -38 degrees QTc Int : 452 ms Atrial fibrillation Inferolateral myocardial infarct Cannot rule out Anterior infarct , age undetermined Abnormal ECG No previous ECGs available Confirmed by Jonh Bell ([id number]) on 04/05/2019 9:32:01 PM Referred By: Rose Marie Confirmed By:Jonh Bell
[2019-04-06 05:57] LABS: Basophils # (auto) 0.02 K/uL (0-0.2); Basophils % (auto) 0.3 %; Eosinophils # (auto) 0.24 K/uL (0-0.5); Eosinophils % (auto) 3.1 %; Hematocrit (blood only) 40.4 % (42-52); Hemoglobin 13.6 g/dL (14.0-18.0); Immature Granulocytes # (auto) 0.01 K/uL (0.00-0.02); Immature Granulocytes % (auto) 0.1 %; Lymphocytes # (auto) 1.97 K/uL (1.2-3.4); Lymphocytes % (auto) 25.1 %; Mean Corpuscular Hemoglobin 32.4 pg (25-34); Mean Corpuscular Hgb Conc 33.7 g/dL (32-36); Mean Corpuscular Volume 96.2 fL (80-100); Mean Platelet Volume 10.8 fL (7.4-10.4); Monocytes # (auto) 0.91 K/uL (0.11-0.59); Monocytes % (auto) 11.6 %; Neutrophils % (auto) 59.8 %; Platelet Count 142 K/uL (130-400); RDW Coefficient of Variation 13.9 % (11.5-14.5); RDW Standard Deviation 48.9 fL (36.4-46.3); White Blood Count 7.85 K/uL (4.8-10.8)
[2019-04-06 06:40] LABS: BUN Creatinine Ratio 8.4 (10-20); Calcium 9.2 mg/dl (8.5-10.1); Creatinine Clr Calc Pharmacy 78.7 ml/min; Est GFR (African American) 103.6; Est GFR (Non-African American) 89.3; Potassium 3.9 mmol/L (3.5-5.1)
[2019-04-06] MEDS: METOPROLOL TARTRATE 25 MG TAB PO SCH ×2 (09:43→20:20)
[2019-04-06] MEDS: APIXABAN 5 MG TABLET PO SCH ×2 (09:44→20:21)
[2019-04-06] MEDS: ASPIRIN 81 MG ECTAB PO SCH (09:44)
[2019-04-06] MEDS: risperiDONE 0.5 MG TABLET PO SCH ×2 (09:44→20:21)
--- NOTE | 2019-04-06 09:53 | Cardiology Progress Note ---
Date of Service April 06, 2019 Assessment & Plan (1) CAD (coronary artery disease): (2) S/P coronary artery stent placement: (3) Cardiomyopathy: (4) Atrial fibrillation: (5) Essential hypertension: ASSESSMENT/PLAN: 1. Paroxysmal Atrial fibrillation: Converted to sinus rhythm yesterday spontaneously. Continue beta-nicholas. Recommend metoprolol succinate 50 mg once daily in place of metoprolol tartrate, which can begin tomorrow. Anticoagulation for stroke risk reduction if no contraindications. 2. CAD status post PCI and CABG x 4: No reported angina but poor historian. Continue aspirin 81 mg daily indefinitely. Beta-nicholas as above. Continue statin therapy. He did not present with acute coronary syndrome. 3. Cardiomyopathy: Moderately reduced LV systolic function. Metoprolol succinate as above on discharge. Any consideration for OLAMIDE-inhibitor can then be done by his primary commercial floor covering installer, Dr. Salvador. He appears euvolemic. 4. Hypertension: Blood pressure remains well controlled. Beta-nicholas as above. 5. Disposition: Cardiology will sign off at this time. Please call with any other questions or concerns. Follow up with Dr. Salvador, his primary commercial floor covering installer, on discharge. Subjective Patient is demented and is a very poor historian. He denies any pain or shortness of breath. He was noted to convert from atrial fibrillation to sinus rhythm yesterday early afternoon. He has been mildly bradycardic at times while sleeping according to nursing staff but otherwise heart rate in the 60s while laying in bed this morning. Review of systems: As above and otherwise unobtainable due to patient's mental status. Physical Exam Physical Exam: Gen.: No acute distress. Alert and oriented to self only. HEENT: Anicteric sclera. Neck: No JVD. Cardiac: Regular. Normal S1-S2. No audible murmurs, rubs, or gallops. Pulmonary: Clear to auscultation bilaterally without wheezes, rales, or rhonchi. Abdomen: Soft, nontender, nondistended, with normoactive bowel sounds. No bruits noted. Extremities: 2+ radial pulses bilaterally. No edema or cyanosis. Results & Data Vital Signs (Past 12 Hours) Vital Signs Temp Pulse Pulse Pulse Resp BP Pulse Ox 04/06/19 09:40 36.5 C 66 18 130/73 98 04/06/19 07:20 37.5 C 56 L 16 169/53 H 95 04/06/19 07:00 53 L 04/06/19 03:55 36.6 C 60 19 110/51 L 99 04/05/19 23:23 36.5 C 54 L 17 106/37 L 100 Laboratory Results Laboratory Results - last 24 hr 04/05/19 04/06/19 04/06/19 14:57 05:35 05:35 WBC 7.85 RBC 4.20 L Hgb 13.6 L Hct 40.4 L MCV 96.2 MCH 32.4 MCHC 33.7 RDW Std Deviation 48.9 H RDW Coeff of Pranav 13.9 Plt Count 142 MPV 10.8 H Immature Gran % (Auto) 0.1 Neut % (Auto) 59.8 Lymph % (Auto) 25.1 [place] % (Auto) 11.6 Eos % (Auto) 3.1 Baso % (Auto) 0.3 Immature Gran # (Auto) 0.01 Neut # (Auto) 4.70 Lymph # (Auto) 1.97 [place] # (Auto) 0.91 H Eos # (Auto) 0.24 Baso # (Auto) 0.02 APTT 42.4 H PTT Ratio 1.6 Sodium 143 Potassium 3.9 Chloride 112 H Carbon Dioxide 29 Anion Gap 2.0 L BUN 6 L D Creatinine 0.72 Est Cr Clr Drug Dosing 78.7 Est GFR ( Amer) 103.6 Est GFR (Non-Af Amer) 89.3 BUN/Creatinine Ratio 8.4 L Glucose 83 Calcium 9.2 Diagnostic Findings Telemetry personally reviewed: Sinus rhythm. Converted from atrial fibrillation to sinus rhythm yesterday afternoon shortly after noon time. The rhythm appeared to convert while he was off monitor. Medications Administered Current Inpatient Medications Apixaban (Eliquis) 5 mg PO BID@0900,2100 [facility] Stop: 05/05/19 17:59 Last Admin: 04/06/19 09:44 Dose: 5 mg Documented by: Aspirin (Ecotrin Ectab) 81 mg PO QAM [facility] Stop: 05/06/19 08:59 Last Admin: 04/06/19 09:44 Dose: 81 mg Documented by: Metoprolol Tartrate (Lopressor) 25 mg PO BID [facility] Stop: 05/06/19 08:59 Last Admin: 04/06/19 09:43 Dose: 25 mg Documented by: Pravastatin Sodium (Pravachol) 40 mg PO HS ANGELINA Stop: 05/04/19 20:59 Last Admin: 04/05/19 21:32 Dose: 40 mg Documented by: Risperidone (Risperdal) 0.5 mg PO BID [facility] Stop: 05/04/19 20:59 Last Admin: 04/06/19 09:44 Dose: 0.5 mg Documented by: PG Care Time/CCT Total # of Minutes Spent Total Time Spent with Patient: Total time spent is greater than 50% in coordination of care (as documented) at patient's floor/unit and/or counseling patient: (1) Atrial fibrillation Atrial fibrillation type: unspecified Qualified Code(s): I48.91 - Unspecified atrial fibrillation
[2019-04-06] MEDS ORDERED: METOPROLOL TARTRATE 1 MG/ML VIAL IV ONE (12:45)
[2019-04-06] MEDS ORDERED: dilTIAZem HCl 5 MG/ML 5 ML VIAL IV STA (13:24)
--- NOTE | 2019-04-06 16:12 | Hospitalist Progress Note ---
Date of Service April 06, 2019 Assessment & Plan (1) Atrial fibrillation: new onset but after discussing with his daughter, has had intermittent tachycardia at times in the past converted to NSR with metoprolol back into aflutter with RVR, 130's today converted after Diltiazem 10mg IV push continue Lopressor 25mg BID continue Eliquis for full anticoagulation appreciate cardiology consultation (2) Weakness: per his daughter, he does not really participate with therapy at [facility] will continue with PT/OT, try to encourage him to participate Aricept stopped for possible side effects of weakness, syncope supportive care (3) CAD (coronary artery disease): s/p CABG previously. stable. continue medical management with statin, BB and ASA 81g. BP too low to tolerate ACEI in setting of reduced pump function. (4) S/P coronary artery stent placement: continue antiplatelet therapy (5) Cardiomyopathy: managed by Dr. Salvador as outpatient examines euvolemic (6) Essential hypertension: ASSESSMENT/PLAN: 1. Paroxysmal Atrial fibrillation: Converted to sinus rhythm yesterday spontaneously. Continue beta-nicholas. Recommend metoprolol succinate 50 mg once daily in place of metoprolol tartrate, which can begin tomorrow. Anticoagulation for stroke risk reduction if no contraindications. 2. CAD status post PCI and CABG x 4: No reported angina but poor historian. Continue aspirin 81 mg daily indefinitely. Beta-nicholas as above. Continue statin therapy. He did not present with acute coronary syndrome. 3. Cardiomyopathy: Moderately reduced LV systolic function. Metoprolol succinate as above on discharge. Any consideration for OLAMIDE-inhibitor can then be done by his primary power saw operator, Dr. Salvador. He appears euvolemic. 4. Hypertension: Blood pressure remains well controlled. Beta-nicholas as above. 5. Disposition: Cardiology will sign off at this time. Please call with any other questions or concerns. Follow up with Dr. Salvador, his primary power saw operator, on discharge. 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 Rangel and Dr. Bell, appreciate their input discussed with vocational case manager, looking into returning to [facility] personal care, concerned that he is too weak for personal care patient disoriented, lethargic most of the day, not eating well was able to get up to the commode with assistance, but otherwise in bed all day went back into atrial fibrillation/flutter in the early afternoon, gave Lopressor 5mg IV and then Diltiazem 10mg IV and he converted to sinus rhythm long talk with the patient's daughter at the bedside he has been slowly declining, she has concerns about his ability to stay in Personal care he only participates in therapy if she is there, otherwise he stays in his bed, does not interact with others she said that he was more alert yesterday, today he is back to his normal state of being confused and lethargic still has urinary incontinence, asked the RN to bladder scan to r/o retention with overflow incontinence no signs of distress, just fatigue and confusion Review of Systems Review of Systems: Unobtainable due to cognitive status (demented) Physical Exam Constitutional: WD/WN, vitals as above + thin and + lethargic Eyes: PERRL, conjunctivae normal, anicteric sclerae ENMT: external ear and nose normal, oropharynx normal Neck: trachea midline, no thyromegaly Respiratory: normal respiratory effort, lungs clear to auscultation Cardiovascular: Rate/Rhythm: + tachycardic and + irregularly irregular Heart Sounds: normal S1 and normal S2; no murmur Vessels: no JVD Extremities: normal capillary refill; no edema Gastrointestinal (Abdomen): normal bowel sounds, soft, nontender, no hepatosplenomegaly Musculoskeletal: no cyanosis or clubbing, extremities motor strength 5/5 Skin: no rashes, warm and dry Neurologic: patellar DTR's 2+ bilat, sensation intact and PERRL, EOMI, accommodation nl, no face palsy, no dysarthria Psychiatric: Orientation: + guarded; + not oriented to person, + not oriented to place and + not oriented to time Eye Contact: + poor eye contact Affect: + flat affect Cognition: + recent memory not intact and + remote memory not intact Lymphatic: no cervical or axillary lymphadenopathy Results & Data Vital Signs (Past 12 Hours) Vital Signs Temp Pulse Pulse Resp BP BP Pulse Ox 04/06/19 16:00 36.6 C 87 20 106/58 L 97 04/06/19 14:20 79 04/06/19 13:29 117/71 04/06/19 12:52 138 H 97/62 L 04/06/19 12:00 36.8 C 146 H 18 97/62 L 95 04/06/19 11:35 130 H 04/06/19 09:40 36.5 C 66 18 130/73 98 04/06/19 07:20 18 04/06/19 07:00 53 L Laboratory Results Laboratory Results - last 24 hr 04/06/19 04/06/19 05:35 05:35 WBC 7.85 RBC 4.20 L Hgb 13.6 L Hct 40.4 L MCV 96.2 MCH 32.4 MCHC 33.7 RDW Std Deviation 48.9 H RDW Coeff of Pranav 13.9 Plt Count 142 MPV 10.8 H Immature Gran % (Auto) 0.1 Neut % (Auto) 59.8 Lymph % (Auto) 25.1 [place] % (Auto) 11.6 Eos % (Auto) 3.1 Baso % (Auto) 0.3 Immature Gran # (Auto) 0.01 Neut # (Auto) 4.70 Lymph # (Auto) 1.97 [place] # (Auto) 0.91 H Eos # (Auto) 0.24 Baso # (Auto) 0.02 Sodium 143 Potassium 3.9 Chloride 112 H Carbon Dioxide 29 Anion Gap 2.0 L BUN 6 L D Creatinine 0.72 Est Cr Clr Drug Dosing 78.7 Est GFR ( Amer) 103.6 Est GFR (Non-Af Amer) 89.3 BUN/Creatinine Ratio 8.4 L Glucose 83 Calcium 9.2 Medications Administered Current Inpatient Medications Apixaban (Eliquis) 5 mg PO BID@0900,2100 [facility] Stop: 05/05/19 17:59 Last Admin: 04/06/19 09:44 Dose: 5 mg Documented by: Aspirin (Ecotrin Ectab) 81 mg PO QAM [facility] Stop: 05/06/19 08:59 Last Admin: 04/06/19 09:44 Dose: 81 mg Documented by: Metoprolol Tartrate (Lopressor) 25 mg PO BID [facility] Stop: 05/06/19 08:59 Last Admin: 04/06/19 09:43 Dose: 25 mg Documented by: Pravastatin Sodium (Pravachol) 40 mg PO HS [facility] Stop: 05/04/19 20:59 Last Admin: 04/05/19 21:32 Dose: 40 mg Documented by: Risperidone (Risperdal) 0.5 mg PO BID [facility] Stop: 05/04/19 20:59 Last Admin: 04/06/19 09:44 Dose: 0.5 mg Documented by: PG Care Time/CCT Total # of Minutes Spent Total Time Spent: 50 Total Time Spent with Patient: Total time spent is greater than 50% in coordination of care (as documented) at patient's floor/unit and/or counseling patient: (1) Atrial fibrillation Atrial fibrillation type: unspecified Qualified Code(s): I48.91 - Unspecified atrial fibrillation (2) Altered mental status Altered mental status type: unspecified Qualified Code(s): R41.82 - Altered mental status, unspecified
[2019-04-06] MEDS: PRAVASTATIN SOD 40 MG TAB PO SCH (20:20)
--- NOTE | 2019-04-06 22:53 | Electrocardiogram Report ---
Test Reason : Blood Pressure : / mmHG Vent. Rate : 091 BPM Atrial Rate : 000 BPM P-R Int : 000 ms QRS Dur : 108 ms QT Int : 372 ms P-R-T Axes : 000 036 025 degrees QTc Int : 457 ms Atrial fibrillation Inferior infarct (cited on or before 04-APR-2019) Abnormal ECG When compared with ECG of 04-APR-2019 11:38, No significant change Confirmed by Jonh Bell ([id number]) on 04/06/2019 10:53:42 PM [facility] Confirmed By:Jonh Bell
[2019-04-07] MEDS ORDERED: dilTIAZem HCl 5 MG/ML 5 ML VIAL IV STA (00:51)
[2019-04-07 06:39] LABS: Basophils # (auto) 0.02 K/uL (0-0.2); Basophils % (auto) 0.2 %; Eosinophils # (auto) 0.07 K/uL (0-0.5); Eosinophils % (auto) 0.6 %; Hematocrit (blood only) 45.5 % (42-52); Hemoglobin 15.3 g/dL (14.0-18.0); Immature Granulocytes # (auto) 0.03 K/uL (0.00-0.02); Immature Granulocytes % (auto) 0.2 %; Lymphocytes # (auto) 1.62 K/uL (1.2-3.4); Lymphocytes % (auto) 12.9 %; Mean Corpuscular Hemoglobin 32.1 pg (25-34); Mean Corpuscular Hgb Conc 33.6 g/dL (32-36); Mean Corpuscular Volume 95.6 fL (80-100); Mean Platelet Volume 11.2 fL (7.4-10.4); Monocytes # (auto) 1.16 K/uL (0.11-0.59); Monocytes % (auto) 9.2 %; Neutrophils # (auto) 9.68 K/uL (1.4-6.5); Neutrophils % (auto) 76.9 %; Platelet Count 149 K/uL (130-400); RDW Coefficient of Variation 13.7 % (11.5-14.5); RDW Standard Deviation 47.8 fL (36.4-46.3); Red Blood Count 4.76 M/uL (4.7-6.1); White Blood Count 12.58 K/uL (4.8-10.8)
[2019-04-07 07:10] LABS: BUN Creatinine Ratio 10.7 (10-20); Calcium 9.5 mg/dl (8.5-10.1); Creatinine Clr Calc Pharmacy 88.3 ml/min; Est GFR (African American) 110.1; Potassium 4.2 mmol/L (3.5-5.1)
[2019-04-07] MEDS: METOPROLOL TARTRATE 50 MG TAB PO SCH ×2 (08:23→19:19)
[2019-04-07] MEDS: APIXABAN 5 MG TABLET PO SCH ×2 (08:24→19:19)
[2019-04-07] MEDS: ASPIRIN 81 MG ECTAB PO SCH (08:24)
[2019-04-07] MEDS: risperiDONE 0.5 MG TABLET PO SCH ×2 (08:24→19:19)
--- NOTE | 2019-04-07 10:45 | XRay Report ---
XR chest 1V portable CLINICAL HISTORY: Cough, leukocytosis COMPARISON STUDY: Chest radiograph April 04, 2019. FINDINGS: Patient is mildly rotated. There are median sternotomy wires. No pneumothorax or pleural ef fusion is noted. There is possible underlying emphysema. There is no evidence for pulmonary edema. Mi nimal bibasilar opacities are noted. There may be slight right midlung opacity. IMPRESSION: Minimal bibasilar opacities. Atelectasis is favored however an infectious process could appear similar. ACT 112: Negative or not required by law. Electronically signed by: Clifford Borja M.D. 04/07/2019 10:43 AM
--- NOTE | 2019-04-07 11:44 | Hospitalist Progress Note ---
Date of Service April 07, 2019 Assessment & Plan (1) Atrial fibrillation: new onset but after discussing with his daughter, has had intermittent tachycardia at times in the past converted to NSR with metoprololm now in and out of afib increase Lopressor to 50mg BID from 25mg, follow for rate control continue Eliquis for full anticoagulation appreciate cardiology consultation (2) Weakness: per his daughter, he does not really participate with therapy at [facility] will continue with PT/OT, try to encourage him to participate Aricept stopped for possible side effects of weakness, syncope, may take days to improve it that was the couse supportive care (3) CAD (coronary artery disease): s/p CABG previously. stable. continue medical management with statin, BB and ASA 81g. BP too low to tolerate ACEI in setting of reduced pump function. (4) S/P coronary artery stent placement: continue antiplatelet therapy (5) Cardiomyopathy: managed by Dr. 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: stop Aricept as adverse effects likely outweigh any benefit currently lives at personal care discussed with daughter that he may be progressing to the point that he needs SNF or locked dementia unit she agrees that this will be needed soon if not now Subjective patient confused still, lethargic, spends all day in bed per RN, he had some agitation last night, HR up in the 140's he urinated all over the room and then HR down to normal, appeared to be agitated with need to urinate he ate a little breakfast but not much, he did take his pills but chewed a lot of them, did not understand to swallow them whole reviewed labs, WBC 12k Hb 15 Cr and electrolytes stable had a cough, no distress ordered CXR: bibasilar atelectasis, no clear infiltrate long talk with patient's daughter at the bedside she is concerned that he is not coming around, still remains lethargic, minimal responses she was initially encouraged on Friday as he was more alert but has been sleeping a lot ever since she really wants to know if this is just progression of his Parkinson's disease, told her I could discuss with Dr. Rangel discussed that he may have infection, perhaps PNA, she agreed to try empiric antibiotics discussed code status, she wants him to remain full code Review of Systems Review of Systems: Unobtainable due to cognitive status Physical Exam Constitutional: WD/WN, vitals as above + thin and + lethargic Eyes: PERRL, conjunctivae normal, anicteric sclerae ENMT: external ear and nose normal, oropharynx normal Neck: trachea midline, no thyromegaly Respiratory: normal respiratory effort, lungs clear to auscultation (decreased sounds in bases) Cardiovascular: Rate/Rhythm: regular rate and + irregularly irregular Heart Sounds: normal S1 and normal S2; no murmur Vessels: no JVD Extremities: normal capillary refill; no edema Gastrointestinal (Abdomen): normal bowel sounds, soft, nontender, no hepatosplenomegaly Musculoskeletal: no cyanosis or clubbing, extremities motor strength 5/5 Skin: no rashes, warm and dry Neurologic: patellar DTR's 2+ bilat, sensation intact and PERRL, EOMI, accommodation nl, no face palsy, no dysarthria Psychiatric: Orientation: + guarded; + not oriented to person, + not oriented to place and + not oriented to time Eye Contact: + poor eye contact A ffect: + flat affect Cognition: + recent memory not intact and + remote memory not intact Lymphatic: no cervical or axillary lymphadenopathy Results & Data Vital Signs (Past 12 Hours) Vital Signs Temp Pulse Pulse Resp BP Pulse Ox 04/07/19 07:09 36.9 C 99 H 16 122/79 97 04/07/19 03:11 36.8 C 105 H 22 124/75 94 04/07/19 00:00 92 H Laboratory Results Laboratory Results - last 24 hr 04/07/19 04/07/19 05:49 05:49 WBC 12.58 H RBC 4.76 Hgb 15.3 Hct 45.5 MCV 95.6 MCH 32.1 MCHC 33.6 RDW Std Deviation 47.8 H RDW Coeff of Pranav 13.7 Plt Count 149 MPV 11.2 H Immature Gran % (Auto) 0.2 Neut % (Auto) 76.9 Lymph % (Auto) 12.9 [place] % (Auto) 9.2 Eos % (Auto) 0.6 Baso % (Auto) 0.2 Immature Gran # (Auto) 0.03 H Neut # (Auto) 9.68 H Lymph # (Auto) 1.62 [place] # (Auto) 1.16 H Eos # (Auto) 0.07 Baso # (Auto) 0.02 Sodium 142 Potassium 4.2 Chloride 110 H Carbon Dioxide 30 Anion Gap 2.0 L BUN 7 Creatinine 0.62 Est Cr Clr Drug Dosing 88.3 Est GFR ( Amer) 110.1 Est GFR (Non-Af Amer) 95.0 BUN/Creatinine Ratio 10.7 Glucose 96 Calcium 9.5 Diagnostic Findings CXR: bibasilar atelectasis, possible underlying infection Medications Administered Current Inpatient Medications Apixaban (Eliquis) 5 mg PO BID@0900,2100 [facility] Stop: 05/05/19 17:59 Last Admin: 04/07/19 08:24 Dose: 5 mg Documented by: Aspirin (Ecotrin Ectab) [facility] Stop: 05/06/19 08:59 Last Admin: 04/07/19 08:24 Dose: 81 mg Documented by: Metoprolol Tartrate (Lopressor) 50 mg PO BID [facility] Stop: 05/07/19 08:59 Last Admin: 04/07/19 08:23 Dose: 50 mg Documented by: Pravastatin Sodium (Pravachol) 40 mg PO [facility] Stop: 05/04/19 20:59 Last Admin: 04/06/19 20:20 Dose: 40 mg Documented by: Risperidone (Risperdal) 0.5 mg PO BID [facility] Stop: 05/04/19 20:59 Last Admin: 04/07/19 08:24 Dose: 0.5 mg Documented by: PG Care Time/CCT Total # of Minutes Spent Total Time Spent: 51 Total Time Spent with Patient: Total time spent is greater than 50% in coordination of care (as documented) at patient's floor/unit and/or counseling patient: (1) Atrial fibrillation Atrial fibrillation type: unspecified Qualified Code(s): I48.91 - Unspecified atrial fibrillation (2) Altered mental status Altered mental status type: unspecified Qualified Code(s): R41.82 - Altered mental status, unspecified
[2019-04-07] MEDS: SODIUM CHLORIDE 0.9% 1000ML 1,000 ML IV SCH (17:22)
[2019-04-07] MEDS: PRAVASTATIN SOD 40 MG TAB PO SCH (19:19)
[2019-04-07] MEDS: CEFEPIME 1,000 MG in SYRINGE 0 ML IV SCH (20:20)
[2019-04-08] MEDS: SODIUM CHLORIDE 0.9% 1000ML 1,000 ML IV SCH ×2 (04:49→16:58)
[2019-04-08 05:38] LABS: Basophils # (auto) 0.02 K/uL (0-0.2); Basophils % (auto) 0.1 %; Eosinophils # (auto) 0.06 K/uL (0-0.5); Eosinophils % (auto) 0.4 %; Hematocrit (blood only) 44.9 % (42-52); Hemoglobin 14.9 g/dL (14.0-18.0); Immature Granulocytes # (auto) 0.02 K/uL (0.00-0.02); Immature Granulocytes % (auto) 0.1 %; Lymphocytes # (auto) 1.95 K/uL (1.2-3.4); Lymphocytes % (auto) 14.3 %; Mean Corpuscular Hgb Conc 33.2 g/dL (32-36); Mean Corpuscular Volume 96.4 fL (80-100); Monocytes # (auto) 1.46 K/uL (0.11-0.59); Monocytes % (auto) 10.7 %; Neutrophils % (auto) 74.4 %; Platelet Count 157 K/uL (130-400); RDW Standard Deviation 49.3 fL (36.4-46.3); Red Blood Count 4.66 M/uL (4.7-6.1); White Blood Count 13.61 K/uL (4.8-10.8)
[2019-04-08 06:09] LABS: BUN Creatinine Ratio 15.7 (10-20); Calcium 9.4 mg/dl (8.5-10.1); Est GFR (African American) 107.3; Est GFR (Non-African American) 92.6; Potassium 3.9 mmol/L (3.5-5.1)
[2019-04-08] MEDS: ASPIRIN 81 MG ECTAB PO SCH (08:17)
[2019-04-08] MEDS: APIXABAN 5 MG TABLET PO SCH ×4 (08:17→22:08)
[2019-04-08] MEDS: CEFEPIME 1,000 MG in SYRINGE 0 ML IV SCH ×2 (08:18→20:40)
[2019-04-08] MEDS: risperiDONE 0.5 MG TABLET PO SCH ×4 (08:18→22:08)
[2019-04-08] MEDS: METOPROLOL TARTRATE 50 MG TAB PO SCH ×5 (08:23→22:07)
--- NOTE | 2019-04-08 10:55 | Neurology Progress Note ---
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 His mini-mental status examination in December was 10/30 points. He has had some side effects to memantine and this has been stopped. I am not sure if donepezil is doing much for him also. Patient has parkinsonism which I believe was secondary to Risperdal and his underlying degenerative condition. Back in December his Risperdal was 1 mg twice a day and it was lowered to 0.5 mg twice a day. Currently I believe his parkinsonism is improved now compared to December having less rigidity and bradykinesia. Patient had some generalized weakness on admission. I believe this was secondary to his hypotension and new onset atrial fibrillation. Today he is quite strong with no focal neurologic findings or meningeal signs. His lethargy is improved with hydration and elevated blood pressure. He is on anticoagulation for atrial fibrillation. MRI of the brain shows atrophy and old ischemia but no acute stroke. The slow flow noted in the transverse and sigmoid sinuses was likely secondary to his very low blood pressure and is probably better. There is no sign of venous infarct. Recommendations: 1. Keep hydrated and keep his mean arterial pressure between 95 and 100. 2. Keep off donepezil, as I am not certain this is doing anything for him it may be adding to side effects. 3. Patient has known behavioral issues, and since his parkinsonism is improved on the lower dose of Risperdal, I would keep the Risperdal dose the same for now. 4. Increase activity as able, including physical therapy. 5. Cardiology has been consulted and we need to convert from heparin to an oral anticoagulant in lieu of his atrial fibrillation. 6. Consider B12 level as he has a history of B12 deficiency. Otherwise, I have no further neurologic recommendations to make at this time. I can follow him as an outpatient if desired. Overall, I spent a total of 25 minutes with this case including review of records, direct evaluation the patient at bedside, and discussing the case with RN at bedside and Dr. Toussaint including differential diagnosis and treatment options. Subjective Patient has no complaint of pain today. He is resting comfortably. Blood pressure is 127/24. CBC and Chem profile were largely unremarkable. Glucose was 118. Nursing reports that he is a little more lethargic today compared to yesterday. Physical Exam Physical Exam: He is easily arousable and will focus and follow one-step commands. He has no facial droop and extraocular eye muscles are intact without nystagmus. He moves limbs symmetrically and is bradykinetic with some mild rigidity. There is no tremor. Results & Data Vital Signs (Past 12 Hours) Vital Signs Temp Pulse Resp BP Pulse Ox 04/08/19 07:05 37.0 C 96 H 18 127/74 98 04/08/19 04:15 37.0 C 89 18 127/74 96 04/07/19 23:43 36.9 C 106 H 16 130/76 94 PG Care Time/CCT Total # of Minutes Spent Total Time Spent with Patient: Total time spent is greater than 50% in co ordination of care (as documented) at patient's floor/unit and/or counseling patient: (1) Atrial fibrillation Atrial fibrillation type: unspecified Qualified Code(s): I48.91 - Unspecified atrial fibrillation
--- NOTE | 2019-04-08 13:27 | Hospitalist Progress Note ---
Date of Service April 08, 2019 Assessment & Plan (1) Atrial fibrillation: new onset but after discussing with his daughter, has had intermittent tachycardia at times in the past converted to NSR with metoprolol but now he continues to have paroxysmal afib increase Lopressor to 50mg TID from BID continue Eliquis for full anticoagulation appreciate cardiology consultation (2) Weakness: per his daughter, he does not really participate with therapy at [facility] will continue with PT/OT, try to encourage him to participate Aricept stopped for possible side effects of weakness, syncope, may take days to improve if that was the cause supportive care seems to be getting some strength back (3) CAD (coronary artery disease): s/p CABG previously. stable. continue medical management with statin, BB and ASA 81g. BP too low to tolerate ACEI in setting of reduced pump function. (4) S/P coronary artery stent placement: continue antiplatelet therapy (5) Cardiomyopathy: managed by Dr. Salvador as outpatient examines euvolemic (6) Essential hypertension: stable increased Lopressor to 50mg TID from BID (7) Altered mental status: encephalopathy on top of baseline dementia lethargic the past three days, not eating well, taking some pills Aricept stopped for possible adverse effects may take a few days to wash out of system could be delirium with lethargy could be that he has unidentified infection start Cefepime empirically today, he is more alert and he is eating, answering some questions, he recognizes his daughter certainly an improvement could be due to treating infection, will continue Cefepime for now, convert to PO option on discharge for 7 day course most likely etiology is basilar pneumonia not well seen on the portable CXR (8) 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 symptoms have improved ever since dose was reduced to 0.5mg from 1mg (9) 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: stopped Aricept as adverse effects likely outweigh any benefit currently lives at personal care discussed with daughter that he is progressing to the point that he needs SNF or locked dementia unit she agrees with this plan we discussed code status, she wishes to continue him as a level 1 for time being will likely lean toward making him a DNR in the future Subjective patient more alert today, actually ate over 50% of his breakfast and even more at lunch time joseph catheter in place, making adequate urine, still receiving IV fluids seems to have a good response to Cefepime discussed with Dr. Rangel, the patient's dementia will surely progress he is not going to improve from a cognitive and independence level discussed this with the patient's daughter, she understands, want him to go to SNF discussed with caser in WBC is up slightly to 13k, no fever Cr is stable at 0.66 and electrolytes normal HR still occasionally tachycardic on monitor increased the metoprolol to 50mg TID for better rate control, BP is holding Review of Systems Review of Systems: Unobtainable due to cognitive status Physical Exam Constitutional: WD/WN, vitals as above + thin Eyes: PERRL, conjunctivae normal, anicteric sclerae ENMT: external ear and nose normal, oropharynx normal Neck: trachea midline, no thyromegaly Respiratory: normal respiratory effort, lungs clear to auscultation (decreased sounds in bases) Cardiovascular: Rate/Rhythm: regular rate and + irregularly irregular Heart Sounds: normal S1 and normal S2; no murmur Vessels: no JVD Extremities: normal capillary refill; no edema Gastrointestinal (Abdomen): normal bowel sounds, soft, nontender, no hepatosplenomegaly Musculoskeletal: no cyanosis or clubbing, extremities motor strength 5/5 Skin: no rashes, warm and dry Neurologic: patellar DTR's 2+ bilat, sensation intact and PERRL, EOMI, accommodation nl, no face palsy, no dysarthria Psychiatric: Orientation: alert and oriented to person; + not oriented to place and + not oriented to time Eye Contact: + poor eye contact Affect: + flat affect Cognition: + recent memory not intact and + remote memory not intact Lymphatic: no cervical or axillary lymphadenopathy Results & Data Vital Signs (Past 12 Hours) Vital Signs Temp Pulse Resp BP Pulse Ox 04/08/19 10:50 36.9 C 83 18 111/69 98 04/08/19 07:05 37.0 C 96 H 18 127/74 98 04/08/19 04:15 37.0 C 89 18 127/74 96 Laboratory Results Laboratory Results - last 24 hr 04/08/19 04/08/19 05:18 05:18 WBC 13.61 H RBC 4.66 L Hgb 14.9 Hct 44.9 MCV 96.4 MCH 32.0 MCHC 33.2 RDW Std Deviation 49.3 H RDW Coeff of Pranav 14.0 Plt Count 157 MPV 11.0 H Immature Gran % (Auto) 0.1 Neut % (Auto) 74.4 Lymph % (Auto) 14.3 [place] % (Auto) 10.7 Eos % (Auto) 0.4 Baso % (Auto) 0.1 Immature Gran # (Auto) 0.02 Neut # (Auto) 10.10 H Lymph # (Auto) 1.95 [place] # (Auto) 1.46 H Eos # (Auto) 0.06 Baso # (Auto) 0.02 Sodium 142 Potassium 3.9 Chloride 111 H Carbon Dioxide 29 Anion Gap 2.0 L BUN 10 Creatinine 0.66 Est Cr Clr Drug Dosing 83.0 Est GFR ( Amer) 107.3 Est GFR (Non-Af Amer) 92.6 BUN/Creatinine Ratio 15.7 Glucose 118 H Calcium 9.4 Medications Administered Current Inpatient Medications Apixaban (Eliquis) 5 mg PO BID@0900,2100 [facility] Stop: 05/05/19 17:59 Last Admin: 04/08/19 08:17 Dose: 5 mg Documented by: Aspirin (Ecotrin Ectab) 81 mg PO QAM [facility] Stop: 05/06/19 08:59 Last Admin: 04/08/19 08:17 Dose: 81 mg Documented by: Sodium Chloride (Nss 1000ml) 1,000 mls @ 80 mls/hr IV .[id number] [facility] Stop: 05/07/19 15:59 Last Admin: 04/08/19 04:49 Dose: 80 mls/hr Documented by: Cefepime HCl 1,000 mg/ Syringe 11.3 mls @ 5.5 mls/min IV Q12 [facility] Stop: 04/09/19 20:59 Last Admin: 04/08/19 08:18 Dose: 5.5 mls/min Documented by: Metoprolol Tartrate (Lopressor) 50 mg PO TID [facility] Stop: 05/08/19 08:59 Last Admin: 04/08/19 08:23 Dose: 50 mg Documented by: Pravastatin Sodium (Pravachol) 40 mg PO HS [facility] Stop: 05/04/19 20:59 Last Admin: 04/07/19 19:19 Dose: 40 mg Documented by: Risperidone (Risperdal) 0.5 mg PO BID [facility] Stop: 05/04/19 20:59 Last Admin: 04/08/19 08:18 Dose: 0.5 mg Documented by: PG Care Time/CCT Total # of Minutes Spent Total Time Spent with Patient: Total time spent is greater than 50% in coordination of care (as documented) at patient's floor/unit and/or counseling patient: Coding Level of Care Code 25879 Subseq Hosp Care Lvl 3 Diagnoses Atrial fibrillation I48.91 Atrial fibrillation type: unspecified Weakness R53.1 CAD (coronary artery disease) I25.10 S/P coronary artery stent placement Z95.5 Cardiomyopathy I42.9 Essential hypertension I10 Altered mental status R41.82 Altered mental status type: unspecified Parkinsonism G20 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
[2019-04-08] MEDS: PRAVASTATIN SOD 40 MG TAB PO SCH ×2 (20:38→20:46)
[2019-04-08] MEDS ORDERED: ACETAMINOPHEN 325 MG TAB PO PRN (22:11)
[2019-04-09] MEDS: SODIUM CHLORIDE 0.9% 1000ML 1,000 ML IV SCH ×2 (05:32→18:30)
[2019-04-09 06:13] LABS: Basophils # (auto) 0.03 K/uL (0-0.2); Basophils % (auto) 0.2 %; Eosinophils % (auto) 1.6 %; Hematocrit (blood only) 43.5 % (42-52); Hemoglobin 14.5 g/dL (14.0-18.0); Immature Granulocytes # (auto) 0.04 K/uL (0.00-0.02); Immature Granulocytes % (auto) 0.3 %; Lymphocytes # (auto) 2.55 K/uL (1.2-3.4); Mean Corpuscular Hemoglobin 32.2 pg (25-34); Mean Corpuscular Hgb Conc 33.3 g/dL (32-36); Mean Corpuscular Volume 96.7 fL (80-100); Mean Platelet Volume 11.3 fL (7.4-10.4); Monocytes # (auto) 1.45 K/uL (0.11-0.59); Monocytes % (auto) 11.9 %; Neutrophils # (auto) 7.88 K/uL (1.4-6.5); Platelet Count 148 K/uL (130-400); RDW Standard Deviation 49.4 fL (36.4-46.3); White Blood Count 12.15 K/uL (4.8-10.8)
[2019-04-09 06:30] LABS: BUN Creatinine Ratio 17.6 (10-20); Calcium 9.3 mg/dl (8.5-10.1); Creatinine Clr Calc Pharmacy 85.4 ml/min; Est GFR (African American) 108.7; Est GFR (Non-African American) 93.8; Potassium 3.8 mmol/L (3.5-5.1)
--- NOTE | 2019-04-09 07:53 | Neurology Progress Note ---
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 His mini-mental status examination in December was 10/30 points. He has had some side effects to memantine and this has been stopped. Donepezil was not helpful either and there was a question of side effects to this, so this was stopped this hospitalization Patient has parkinsonism which I believe was secondary to Risperdal and his underlying degenerative condition. Back in December, his Risperdal was 1 mg twice a day and it was lowered to 0.5 mg twice a day. Currently I believe his parkinsonism is improved now compared to December having less rigidity and bradykinesia. Nevertheless, he still has mild parkinsonism. Patient had some generalized weakness on admission. I believe this was secondary to his hypotension and new onset atrial fibrillation. Today he is quite strong , particularly in the arms, with no focal neurologic findings or meningeal signs. His lethargy is improved with hydration and elevated blood pressure. He is on anticoagulation for atrial fibrillation. He still has a rapid ventricular rate. MRI of the brain shows atrophy and old ischemia but no acute stroke. The slow flow noted in the transverse and sigmoid sinuses was likely secondary to his very low blood pressure and is probably better. There is no sign of venous infarct. Recommendations: 1. Keep hydrated and keep his mean arterial pressure between 95 and 100. 2. There is no medication initiation needed for his dementia this time 3. Patient has known behavioral issues. Since his parkinsonism is improved on the lower dose of Risperdal, I would keep the Risperdal dose the same for now, as it seems to help his behavior. 4. Increase activity as able, including physical therapy. 5. Continue 5 milligram Eliquis and 81 milligram aspirin daily 6. Consider B12 level as he has a history of B12 deficiency. I can follow him as an outpatient if desired. Overall, I spent a total of 25 minutes with this case including review of records, direct evaluation the patient at bedside, and discussing the case with RN at bedside and Dr. Toussaint including differential diagnosis and treatment options. Subjective Today the patient is a little more alert/away. He has no complaint of pain or headache. He is not dizzy. Nursing reports no events overnight. Monitoring reports atrial fibrillation with a rapid rate ranging from 110-120 most of the time. He did get as high as 160 last night. He is afebrile and blood pressure is 118/72. CBC shows mildly elevated white count increased neutrophils. Blood and urine cultures have been negative so far. Basic metabolic profile Physical Exam Physical Exam: He is awake and alert. His speech is soft but only but intelligible if you get him to speak up a little bit. He does not have an obvious aphasia or dysarthria. Memory is poor and he is not oriented except to person. Extraocular muscles are intact without nystagmus. Pupils are 4 millimeters and reactive to light. There is no facial droop. He has a mild to moderate masklike face and moderate bradykinesia in general. There is no resting tremor. There is no ataxia with [id number] testing and no action tremor. Strength is 5/5 diffusely in the arms bilaterally with mild rigidity. Leg strength is 4+/5 symmetrically with mild rigidity as well. 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
[2019-04-09] MEDS: CEFEPIME 1,000 MG in SYRINGE 0 ML IV SCH ×2 (09:17→20:56)
[2019-04-09] MEDS: ASPIRIN 81 MG ECTAB PO SCH (09:17)
[2019-04-09] MEDS: METOPROLOL TARTRATE 50 MG TAB PO SCH ×3 (09:18→20:57)
[2019-04-09] MEDS: APIXABAN 5 MG TABLET PO SCH ×2 (11:30→20:56)
[2019-04-09] MEDS: risperiDONE 0.5 MG TABLET PO SCH ×2 (11:30→20:56)
--- NOTE | 2019-04-09 16:39 | Hospitalist Progress Note ---
Date of Service April 09, 2019 Assessment & Plan (1) Atrial fibrillation: new onset but after discussing with his daughter, has had intermittent tachycardia at times in the past converted to NSR with metoprolol but now he continues to have paroxysmal afib increased Lopressor to 50mg TID on 04/08 HR still elevated at times, > 100 BP running low normal if HR still up tomorrow AM then increase Lopressor to 100mg BID continue Eliquis for full anticoagulation appreciate cardiology consultation (2) Weakness: per his daughter, he does not really participate with therapy at [facility] able to get up OOB to chair today with therapy which is an improvement Aricept stopped for possible side effects of weakness, syncope supportive care seems to be getting some strength back today (3) CAD (coronary artery disease): s/p CABG previously. stable. continue medical management with statin, BB and ASA 81g. BP too low to tolerate ACEI in setting of reduced pump function. (4) S/P coronary artery stent placement: continue antiplatelet therapy (5) Cardiomyopathy: managed by Dr. Salvador as outpatient examines euvolemic (6) Essential hypertension: stable increased Lopressor to 50mg TID from BID (7) Altered mental status: encephalopathy on top of baseline dementia lethargic the past three days, not eating well, taking some pills Aricept stopped for possible adverse effects may take a few days to wash out of system could be delirium with lethargy could be that he has unidentified infection start Cefepime empirically over past two days he is more alert and he is eating, answering some questions, he recognizes his daughter certainly an improvement up to chair today, further clarity (8) 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 symptoms have improved ever since dose was reduced to 0.5mg from 1mg (9) 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: stopped Aricept as adverse effects likely outweigh any benefit currently lives at personal care discussed with daughter that he is progressing to the point that he needs SNF or locked dementia unit she agrees with this plan we discussed code status, she wishes to continue him as a level 1 for time being will likely lean toward making him a DNR in the future (10) Pneumonia: questionable infiltrates in bases he coughs and chokes while eating, will ask speech therapy to see good response to Cefepime, WBC down to 12k will complete a full 7 day course of antibiotics Subjective patient more alert today, was able to get OOB to a chair with therapy eating better WBC down slightly to 12k changed Cefepime to continue until 03/14 Cr is stable discussed again with Dr. Rangel, although patient more alert, dementia is severe discussed with CM, plan for [facility] on Friday Review of Systems Review of Systems: Unobtainable due to cognitive status Physical Exam Constitutional: WD/WN, vitals as above + thin Eyes: PERRL, conjunctivae normal, anicteric sclerae ENMT: external ear and nose normal, oropharynx normal Neck: trachea midline, no thyromegaly Respiratory: normal respiratory effort, lungs clear to auscultation (decreased sounds in bases) Cardiovascular: Rate/Rhythm: regular rate and + irregularly irregular Heart Sounds: normal S1 and normal S2; no murmur Vessels: no JVD Extremities: normal capillary refill; no edema Gastrointestinal (Abdomen): normal bowel sounds, soft, nontender, no hepatosplenomegaly Musculoskeletal: no cyanosis or clubbing, extremities motor strength 5/5 Skin: no rashes, warm and dry Neurologic: patellar DTR's 2+ bilat, sensation intact and PERRL, EOMI, accommodation nl, no face palsy, no dysarthria Psychiatric: Orientation: alert and oriented to person; + not oriented to place and + not oriented to time Affect: + flat affect Cognition: + recent memory not intact and + remote memory not intact Lymphatic: no cervical or axillary lymphadenopathy Results & Data Vital Signs (Past 12 Hours) Vital Signs Temp Pulse Resp BP Pulse Ox 04/09/19 15:17 36.4 C L 98 H 16 128/55 L 95 04/09/19 11:42 37.0 C 109 H 16 98/60 L 94 04/09/19 07:37 36.8 C 101 H 16 136/62 95 Laboratory Results Laboratory Results - last 24 hr 04/09/19 04/09/19 05:50 05:50 WBC 12.15 H RBC 4.50 L Hgb 14.5 Hct 43.5 MCV 96.7 MCH 32.2 MCHC 33.3 RDW Std Deviation 49.4 H RDW Coeff of Pranav 14.0 Plt Count 148 MPV 11.3 H Immature Gran % (Auto) 0.3 Neut % (Auto) 65.0 Lymph % (Auto) 21.0 [place] % (Auto) 11.9 Eos % (Auto) 1.6 Baso % (Auto) 0.2 Immature Gran # (Auto) 0.04 H Neut # (Auto) 7.88 H Lymph # (Auto) 2.55 [place] # (Auto) 1.45 H Eos # (Auto) 0.20 Baso # (Auto) 0.03 Sodium 142 Potassium 3.8 Chloride 110 H Carbon Dioxide 31 Anion Gap 1.0 L BUN 11 Creatinine 0.64 Est Cr Clr Drug Dosing 85.4 Est GFR ( Amer) 108.7 Est GFR (Non-Af Amer) 93.8 BUN/Creatinine Ratio 17.6 Glucose 102 H Calcium 9.3 Medications Administered Current Inpatient Medications Acetaminophen (Tylenol) 650 mg PO Q4H PRN PRN Reason: Fever Stop: 05/08/19 22:10 Apixaban (Eliquis) 5 mg PO BID@0900,2100 [facility] Stop: 05/05/19 17:59 Last Admin: 04/09/19 11:30 Dose: 5 mg Documented by: Aspirin (Ecotrin Ectab) 81 mg PO QAM [facility] Stop: 05/06/19 08:59 Last Admin: 04/09/19 09:17 Dose: 81 mg Documented by: Sodium Chloride (Nss 1000ml) 1,000 mls @ 80 mls/hr IV .[id number] [facility] Stop: 05/07/19 15:59 Last Admin: 04/09/19 05:32 Dose: 80 mls/hr Documented by: Cefepime HCl 1,000 mg/ Syringe 11.3 mls @ 5.5 mls/min IV Q12 [facility] Stop: 04/14/19 20:59 Last Admin: 04/09/19 09:17 Dose: 5.5 mls/min Documented by: Metoprolol Tartrate (Lopressor) 50 mg PO TID [facility] Stop: 05/08/19 08:59 Last Admin: 04/09/19 09:18 Dose: 50 mg Documented by: Pravastatin Sodium (Pravachol) 40 mg PO HS [facility] Stop: 05/04/19 20:59 Last Admin: 04/08/19 20:46 Dose: Not Given Documented by: Risperidone (Risperdal) 0.5 mg PO BID [facility] Stop: 05/04/19 20:59 Last Admin: 04/09/19 11:30 Dose: 0.5 mg Documented by: PG Care Time/CCT Total # of Minutes Spent Total Time Spent with Patient: Total time spent is greater than 50% in coordination of care (as documented) at patient's floor/unit and/or counseling patient: Coding Level of Care Code 86941 Subseq Hosp Care Lvl 3 Diagnoses Atrial fibrillation I48.91 Atrial fibrillation type: unspecified Weakness R53.1 CAD (coronary artery disease) I25.10 S/P coronary artery stent placement Z95.5 Cardiomyopathy I42.9 Essential hypertension I10 Altered mental status R41.82 Altered mental status type: unspecified Parkinsonism G20 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
[2019-04-09] MEDS: PRAVASTATIN SOD 40 MG TAB PO SCH (20:58)
[2019-04-10 06:59] LABS: BUN Creatinine Ratio 22.2 (10-20); Calcium 8.9 mg/dl (8.5-10.1); Creatinine Clr Calc Pharmacy 102.2 ml/min; Est GFR (African American) 115.7; Est GFR (Non-African American) 99.8; Potassium 3.8 mmol/L (3.5-5.1)
[2019-04-10] MEDS: SODIUM CHLORIDE 0.9% 1000ML 1,000 ML IV SCH (07:18)
[2019-04-10] MEDS: METOPROLOL TARTRATE 50 MG TAB PO SCH (08:55)
[2019-04-10] MEDS: risperiDONE 0.5 MG TABLET PO SCH ×2 (08:55→20:23)
[2019-04-10] MEDS: APIXABAN 5 MG TABLET PO SCH ×2 (08:55→20:24)
[2019-04-10] MEDS: ASPIRIN 81 MG ECTAB PO SCH (08:55)
[2019-04-10] MEDS: CEFEPIME 1,000 MG in SYRINGE 0 ML IV SCH ×2 (08:56→20:27)
[2019-04-10] MEDS ORDERED: METOPROLOL TARTRATE 50 MG TAB PO STA (10:35)
--- NOTE | 2019-04-10 10:38 | Hospitalist Progress Note ---
Date of Service April 10, 2019 Assessment & Plan (1) Atrial fibrillation: new onset but after discussing with his daughter, has had intermittent tachycardia at times in the past converted to NSR with metoprolol but then back to paroxysmal afib, now appears permanent increased Lopressor to 50mg TID on 04/08 HR better controlled but in 90's at rest, goes up with activity change Lopressor to 100mg BID continue Eliquis for full anticoagulation downgrade to medical floor as he has not required any IV push rate control for 2 days (2) Weakness: per his daughter, he does not really participate with therapy at [facility] able to get up OOB to chair on 04/09 with therapy which is an improvement Aricept stopped for possible side effects of weakness, syncope supportive care seems to be getting some strength back, continue with therapy plan for SNF rehab, possible placement on Friday (3) CAD (coronary artery disease): s/p CABG previously. stable. continue medical management with statin, BB and ASA 81g. BP too low to tolerate ACEI in setting of reduced pump function. (4) S/P coronary artery stent placement: continue antiplatelet therapy (5) Cardiomyopathy: managed by Dr. Salvador as outpatient examines euvolemic (6) Essential hypertension: stable increased Lopressor to 100mg BID (7) Altered mental status: encephalopathy on top of baseline dementia lethargic for three days, not eating well, taking some pills Aricept stopped for possible adverse effects may take a few days to wash out of system could be delirium with lethargy could be that he had unidentified infection started Cefepime empirically over past three days he is more alert and he is eating, answering some questions, he recognizes his daughter certainly an improvement up to chair today, further clarity mental status appears to be back to baseline (8) 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 symptoms have improved ever since dose was reduced to 0.5mg from 1mg (9) 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: stopped Aricept as adverse effects likely outweigh any benefit currently lives at personal care discussed with daughter that he is progressing to the point that he needs SNF or locked dementia unit she agrees with this plan we discussed code status, she wishes to continue him as a level 1 for time being will likely lean toward making him a DNR in the future (10) Pneumonia: questionable infiltrates in bases he coughs and chokes while eating, will ask speech therapy to see good response to Cefepime, WBC down to 12k yesterdat will complete a full 7 day course of antibiotics keep on Cefepime IV while here, change to oral option on discharge Subjective patient continues to be alert, eating better, participating in therapy no issues over night reviewed monitor, limited tachycardia, reasonably controlled on just oral metoprolol will change to metoprolol 100mg BID labs reviewed, Cr is 0.55, K 3.8 discussed with RN, stop fluids, will downgrade to medical floor still plan for SNF rehab on Friday Review of Systems Review of Systems: All systems reviewed & are unremarkable except as noted in HPI & below Constitutional: + fatigue and + weakness; no fever, no chills and no sweats Respiratory: no cough and no dyspnea Cardiovascular: no chest pain and no edema Gastrointestinal: no abdominal pain, no nausea, no vomiting, no constipation and no diarrhea/loose stools Physical Exam Constitutional: WD/WN, vitals as above + thin Eyes: PERRL, conjunctivae normal, anicteric sclerae ENMT: external ear and nose normal, oropharynx normal Neck: trachea midline, no thyromegaly Respiratory: normal respiratory effort, lungs clear to auscultation (decreased sounds in bases) Cardiovascular: Rate/Rhythm: regular rate and + irregularly irregular Heart Sounds: normal S1 and normal S2; no murmur Vessels: no JVD Extremities: normal capillary refill; no edema Gastrointestinal (Abdomen): normal bowel sounds, soft, nontender, no hepatosplenomegaly Musculoskeletal: no cyanosis or clubbing, extremities motor strength 5/5 Skin: no rashes, warm and dry Neurologic: patellar DTR's 2+ bilat, sensation intact and PERRL, EOMI, accommodation nl, no face palsy, no dysarthria Psychiatric: Orientation: alert and oriented to person; + not oriented to place and + not oriented to time Affect: + flat affect Cognition: + recent memory not intact and + remote memory not intact Lymphatic: no cervical or axillary lymphadenopathy Results & Data Vital Signs (Past 12 Hours) Vital Signs Temp Pulse Pulse Resp BP Pulse Ox 04/10/19 07:47 37.1 C 88 18 115/64 96 04/10/19 07:21 90 04/10/19 04:36 36.9 C 87 20 96/63 L 95 04/10/19 00:19 37.9 C H 90 18 128/74 95 Laboratory Results Laboratory Results - last 24 hr 04/10/19 05:59 Sodium 141 Potassium 3.8 Chloride 111 H Carbon Dioxide 29 Anion Gap 1.0 L BUN 12 Creatinine 0.55 L Est Cr Clr Drug Dosing 102.2 Est GFR ( Amer) 115.7 Est GFR (Non-Af Amer) 99.8 BUN/Creatinine Ratio 22.2 H Glucose 93 Calcium 8.9 Medications Administered Current Inpatient Medications Acetaminophen (Tylenol) 650 mg PO Q4H PRN PRN Reason: Fever Stop: 05/08/19 22:10 Apixaban (Eliquis) 5 mg PO BID@0900,2100 [facility] Stop: 05/05/19 17:59 Last Admin: 04/10/19 08:55 Dose: 5 mg Documented by: Aspirin (Ecotrin Ectab) 81 mg PO QAM [facility] Stop: 05/06/19 08:59 Last Admin: 04/10/19 08:55 Dose: 81 mg Documented by: Sodium Chloride (Nss 1000ml) 1,000 mls @ 80 mls/hr IV .[id number] [facility] Stop: 05/07/19 15:59 Last Admin: 04/10/19 07:18 Dose: 80 mls/hr Documented by: Cefepime HCl 1,000 mg/ Syringe 11.3 mls @ 5.5 mls/min IV Q12 [facility] Stop: 04/14/19 20:59 Last Admin: 04/10/19 08:56 Dose: 5.5 mls/min Documented by: Metoprolol Tartrate (Lopressor) 50 mg PO NOW [facility] Stop: 04/10/19 10:36 Metoprolol Tartrate (Lopressor) 100 mg PO BID [facility] Stop: 05/10/19 20:59 Pravastatin Sodium (Pravachol) 40 mg PO HS [facility] Stop: 05/04/19 20:59 Last Admin: 04/09/19 20:58 Dose: 40 mg Documented by: Risperidone (Risperdal) 0.5 mg PO BID [facility] Stop: 05/04/19 20:59 Last Admin: 04/10/19 08:55 Dose: 0.5 mg Documented by: PG Care Time/CCT Total # of Minutes Spent Total Time Spent with Patient: Total time spent is greater than 50% in coordination of care (as documented) at patient's floor/unit and/or counseling patient: Coding Level of Care Code 21970 Subseq Hosp Care Lvl 3 Diagnoses Atrial fibrillation I48.91 Atrial fibrillation type: unspecified Weakness R53.1 CAD (coronary artery disease) I25.10 S/P coronary artery stent placement Z95.5 Cardiomyopathy I42.9 Essential hypertension I10 Altered mental status R41.82 Altered mental status type: unspecified Parkinsonism G20 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
[2019-04-10] MEDS: PRAVASTATIN SOD 40 MG TAB PO SCH (20:23)
[2019-04-10] MEDS: METOPROLOL TARTRATE 100 MG TAB PO SCH (20:24)
[2019-04-11] MEDS: APIXABAN 5 MG TABLET PO SCH ×2 (08:16→19:42)
[2019-04-11] MEDS: METOPROLOL TARTRATE 100 MG TAB PO SCH ×2 (08:16→19:42)
[2019-04-11] MEDS: risperiDONE 0.5 MG TABLET PO SCH ×2 (08:16→19:42)
[2019-04-11] MEDS: ASPIRIN 81 MG ECTAB PO SCH (08:16)
[2019-04-11] MEDS: CEFEPIME 1,000 MG in SYRINGE 0 ML IV SCH ×2 (08:17→19:41)
--- NOTE | 2019-04-11 16:17 | Hospitalist Progress Note ---
Date of Service April 11, 2019 Assessment & Plan (1) Atrial fibrillation: new onset but after discussing with his daughter, has had intermittent tachycardia at times in the past converted to NSR with metoprolol but then back to paroxysmal afib, now appears permanent increased Lopressor to 50mg TID on 04/08 HR better controlled but in 90's at rest, goes up with activity change Lopressor to 100mg BID continue Eliquis for full anticoagulation should d/c on Lopressor 100mg BID and Eliquis HR is controlled (2) Weakness: per his daughter, he does not really participate with therapy at [facility] able to get up OOB to chair on 04/09 with therapy which is an improvement Aricept stopped for possible side effects of weakness, syncope supportive care seems to be getting some strength back, continue with therapy plan for SNF rehab, possible placement on Friday (3) CAD (coronary artery disease): s/p CABG previously. stable. continue medical management with statin, BB and ASA 81g. BP too low to tolerate ACEI in setting of reduced pump function. (4) S/P coronary artery stent placement: continue antiplatelet therapy (5) Cardiomyopathy: managed by Dr. Salvador as outpatient examines euvolemic (6) Essential hypertension: stable increased Lopressor to 100mg BID (7) Altered mental status: encephalopathy on top of baseline dementia lethargic for three days, not eating well, taking some pills Aricept stopped for possible adverse effects may take a few days to wash out of system could be delirium with lethargy could be that he had unidentified infection started Cefepime empirically over past four days he is more alert and he is eating, answering some questions, he recognizes his daughter certainly an improvement up to chair yesterday, further clarity mental status appears to be back to baseline (8) 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 symptoms have improved ever since dose was reduced to 0.5mg from 1mg (9) 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: stopped Aricept as adverse effects likely outweigh any benefit currently lives at personal care discussed with daughter that he is progressing to the point that he needs SNF she agrees with this plan we discussed code status, changed to DNR consult palliative care to talk with daughter tomorrow, determine if hospice is appropriate or when would it be appropriate (10) Pneumonia: questionable infiltrates in bases he coughs and chokes while eating good response to Cefepime, WBC down to 12k will complete a full 7 day course of antibiotics keep on Cefepime IV while here, change to oral option on discharge for 7 days total therapy Subjective patient doing reasonably well, alert, eating, taking medications however, functionally he is not as active planning for [facility] tomorrow discussed with daughter at the bedside, she feels that he will likely stay at [facility] she has seen his decline over the past few months we discussed his code status, she agrees that CPR, intubation would not be in his best interest she agreed that we should change him to DNR, order placed she has a lot of questions about what to expect, 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 she 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 that she would like to speak with palliative care, discuss if hospice would be appropriate Review of Systems Review of Systems: Unobtainable due to cognitive status Physical Exam Constitutional: WD/WN, vitals as above + thin Eyes: PERRL, conjunctivae normal, anicteric sclerae ENMT: external ear and nose normal, oropharynx normal Neck: trachea midline, no thyromegaly Respiratory: normal respiratory effort, lungs clear to auscultation (decreased sounds in bases) Cardiovascular: Rate/Rhythm: regular rate and + irregularly irregular Heart Sounds: normal S1 and normal S2; no murmur Vessels: no JVD Extremities: normal capillary refill; no edema Gastrointestinal (Abdomen): normal bowel sounds, soft, nontender, no hepatosplenomegaly Musculoskeletal: no cyanosis or clubbing, extremities motor strength 5/5 Skin: no rashes, warm and dry Neurologic: patellar DTR's 2+ bilat, sensation intact and PERRL, EOMI, accommodation nl, no face palsy, no dysarthria Psychiatric: Orientation: alert and oriented to person; + not oriented to place and + not oriented to time Cognition: + recent memory not intact and + remote memory not intact Lymphatic: no cervical or axillary lymphadenopathy Results & Data Vital Signs (Past 12 Hours) Vital Signs Temp Pulse Resp BP BP Pulse Ox 04/11/19 15:35 37.1 C 93 H 18 112/78 97 04/11/19 08:09 36.9 C 60 19 133/72 95 04/11/19 07:46 86 14 115/53 L 96 Medications Administered Current Inpatient Medications Acetaminophen (Tylenol) 650 mg PO Q4H PRN PRN Reason: Fever Stop: 05/08/19 22:10 Apixaban (Eliquis) 5 mg PO BID@0900,2100 [facility] Stop: 05/05/19 17:59 Last Admin: 04/11/19 08:16 Dose: 5 mg Documented by: Aspirin (Ecotrin Ectab) 81 mg PO QAM [facility] Stop: 05/06/19 08:59 Last Admin: 04/11/19 08:16 Dose: 81 mg Documented by: Cefepime HCl 1,000 mg/ Syringe 11.3 mls @ 5.5 mls/min IV Q12 [facility] Stop: 04/14/19 20:59 Last Admin: 04/11/19 08:17 Dose: 5.5 mls/min Documented by: Metoprolol Tartrate (Lopressor) 100 mg PO BID [facility] Stop: 05/10/19 20:59 Last Admin: 04/11/19 08:16 Dose: 100 mg Documented by: Pravastatin Sodium (Pravachol) 40 mg PO HS [facility] Stop: 05/04/19 20:59 Last Admin: 04/10/19 20:23 Dose: 40 mg Documented by: Risperidone (Risperdal) 0.5 mg PO BID [facility] Stop: 05/04/19 20:59 Last Admin: 04/11/19 08:16 Dose: 0.5 mg Documented by: PG Care Time/CCT Total # of Minutes Spent Total Time Spent: 35 Total Time Spent with Patient: Total time spent is greater than 50% in coordination of care (as documented) at patient's floor/unit and/or counseling patient: Coding Level of Care Code 97712 Subseq Hosp Care Lvl 3 Diagnoses Atrial fibrillation I48.91 Atrial fibrillation type: unspecified Weakness R53.1 CAD (coronary artery disease) I25.10 S/P coronary artery stent placement Z95.5 Cardiomyopathy I42.9 Essential hypertension I10 Altered mental status R41.82 Altered mental status type: unspecified Parkinsonism G20 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
[2019-04-11] MEDS: PRAVASTATIN SOD 40 MG TAB PO SCH (19:41)
[2019-04-11] MEDS: LORazepam 1 MG/2 ML VIAL IV PRN (19:41)
[2019-04-12 08:23] LABS: Hematocrit (blood only) 41.3 % (42-52); Hemoglobin 13.9 g/dL (14.0-18.0); Mean Corpuscular Hgb Conc 33.7 g/dL (32-36); Mean Corpuscular Volume 94.9 fL (80-100); Mean Platelet Volume 10.6 fL (7.4-10.4); Platelet Count 191 K/uL (130-400); RDW Coefficient of Variation 13.5 % (11.5-14.5); RDW Standard Deviation 47.1 fL (36.4-46.3); Red Blood Count 4.35 M/uL (4.7-6.1); White Blood Count 11.27 K/uL (4.8-10.8)
[2019-04-12 08:58] LABS: BUN Creatinine Ratio 25.5 (10-20); Calcium 9.8 mg/dl (8.5-10.1); Creatinine Clr Calc Pharmacy 112.5 ml/min; Est GFR (African American) 120.3; Est GFR (Non-African American) 103.8
[2019-04-12] MEDS: CEFEPIME 1,000 MG in SYRINGE 0 ML IV SCH (09:12)
[2019-04-12] MEDS: ASPIRIN 81 MG ECTAB PO SCH (09:12)
[2019-04-12] MEDS: APIXABAN 5 MG TABLET PO SCH (09:12)
[2019-04-12] MEDS: risperiDONE 0.5 MG TABLET PO SCH (09:13)
[2019-04-12] MEDS: METOPROLOL TARTRATE 100 MG TAB PO SCH (09:13)
[2019-04-12] MEDS: LORazepam 1 MG/2 ML VIAL IV PRN (09:13)
--- NOTE | 2019-04-12 09:42 | Palliative Care Consultation ---
Date of Consultation April 12, 2019 Assessment & Plan (1) Goals of care, counseling/discussion: This is a 78 year old male who was transferred to the [facility] from [facility] with progressive weakness and lethargy which was found to be secondary to dehydration and a new onset of atrial fibrillation. The patient was noted to dysphagia and found to be aspirating. He was also being treated for aspiration PNA. He was rate controlled with treatment and ultimately now has permanent paroxysmal atrial fibrillation. 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 Per the patients daughter, he was mostly independent with his ADLs, but has progressively been worsening over the past few months with increased lethargy, fraility, and confusion. Palliative Care was consulted to discuss goals of care. -I met with the patient in room 386. Patient was not awake, unarousable to verbal or tactile stimulation. Patients head was tilted backwards. -Patient currently receiving treatment for aspiration PNA. Some intermittent twitching noted in all extremities. -I initially spoke with the patients daughterEstela on the telephone ([phone]) to discuss goals of care. The patient lives at [facility] and she stated that she does NOT want her father to return there due to care complaints. -The patients daughter presented to the hospital and we spoke in person. Her father has shown significant decline over the past few months with worsening lethargy, less periods of being interactive and just overall worsening of his dementia. -On a FAST scale patients dementia is 7F. -We talked at length about aspiration PNA, end-stage dementia, Parkinson's disease and severe protein malnourishment. Her main goal is quality vs quantity. Bobbi from Speech Therapy was in the room dsicussing risk vs benefit and comfort feedings. Artificial nutrition was discussed and patient daughter agrees that there would be more risk vs benefits with life prolonging tube feedings. We discussed comfort feedings and indicated that if he wakes and wants to eat a cookie, or ice cream, we will let him to allow that comfort and quality at end of life. -I was in the room for >40 minutes and during that time frame, patient had periods of tachypnea with RR > 30, periods of shallow breathing, and 10-15 second pauses of apnea. -I believe the patient is now actively dying. I did say that there may be periods of cognitive clarity at end of life and that he could surprise us and wake over the next hours to days, but to reassure her that his body is at the true end stage of life. -The patient daughter has a brother and mother. She has a 6 year old son but no other family/friends that would want to talk or visit the patient. Pt daughter declined a berevement cart. -The patients daughter is comfortable with stopping all blood draws, vital sign monitoring, holding all PO medications unless he is awake enough, comfort feedings and starting comfort focused medications. -I ordered the following medications: Roxanol 5 mg SL Q2 hr PRN for air hunger/respiratory changes/pain, Ativan 0.5 mg IV Q3 PRN for agitation/restlessness and Atropine 1% 4gtts SL Q1 PRN for audible oral secretions. Roxanol can be increased to Q1 hr if needed. -Advised we would continue to assess the patients stability and continue to have a goal for discharge to a SNF with Hospice service. Patient unable at this time to participate in any therapies or rehabilitation. -Likely patient will pass away within hours to a day or two. At this time, patient not stable for transfer out of hospital. Not a GIP candidate at this time as symptoms managed. Should patient live beyond 24-48 hours, reassess for stability for discharge. -Palliative care will continue to follow and provide support throughout the hos pitalization. 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 Toussaint Attending Physician: Gissell Davila MD History of Present Illness This is a 78 year old male who was transferred to the [facility] from [facility] with progressive weakness and lethargy which was found to be secondary to dehydration and a new onset of atrial fibrillation. The patient was noted to dysphagia and found to be aspirating. He was also being treated for aspiration PNA. He was rate controlled with treatment and ultimately now has permanent paroxysmal atrial fibrillation. 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 Per the patients daughter, he was mostly independent with his ADLs, but has progressively been worsening over the past few months with increased lethargy, fraility, and confusion. Palliative Care was consulted to discuss goals of care. Please see A/P for further details. Thank you kindly for involving the Palliative Care team with this patient. We will follow accordingly. Allergies Allergy/AdvReac Type Severity Reaction Status Date / Time fluvastatin Allergy Unknown Unknown Verified 04/07/19 15:55 simvastatin [From Zocor] Allergy Unknown Unknown Verified 04/07/19 15:55 atorvastatin Allergy Unknown Verified 04/07/19 15:55 Home Medications Home Medications Medication Instructions Recorded Confirmed Type aspirin 325 mg tablet 325 mg PO DAILY 12/30/18 04/04/19 History atenolol 25 mg tablet 25 mg PO DAILY 12/30/18 04/04/19 History cyanocobalamin (vitamin B-12) 100 mcg SQ .COMPLEX 12/30/18 04/04/19 History 1,000 mcg/mL injection solution donepezil 5 mg tablet 5 mg PO HS 12/30/18 04/04/19 History pravastatin 40 mg tablet 40 mg PO HS 12/30/18 04/04/19 History risperidone 1 mg tablet 0.5 mg PO BID tab 12/30/18 04/04/19 History acetaminophen 325 mg capsule 650 mg PO Q4H PRN cap 02/26/19 04/04/19 History ibuprofen 400 mg tablet 400 mg PO Q6H PRN 02/26/19 04/04/19 History cholecalciferol (vitamin D3) 2,000 unit PO DAILY 04/04/19 04/04/19 History [Vitamin D3] diclofenac sodium 1 % TOPICAL BID PRN 04/04/19 04/04/19 History melatonin 10 mg PO HS PRN 04/04/19 04/04/19 History Patient History Medical History (Updated 04/12/19 @ 09:42 by LEONA Avilez) CAD (coronary artery disease) Cardiomyopathy 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 Dyslipidemia Essential hypertension Goals of care, counseling/discussion Vitamin B 12 deficiency Surgical History S/P cholecystectomy S/P coronary artery bypass graft x 4 S/P coronary artery stent placement S/P hemorrhoidectomy S/P inguinal hernia repair S/P tonsillectomy Family History Mother , age 75 from lung cancer with brain metastases Lung cancer Father , age 62 of an [place] Myocardial infarction Social History Preferred Language: Maltese Communication Ability: Impaired Baker Test Required: No Beliefs That Will Affect Care: None Current Living Situation: Personal Care Facility current occupational status: retired Other Information That Helps Us Care for You: No other: 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 Feels Safe at Home: Yes Safety Concerns: Feels Safe At This Time Smoking Status: Former smoker Tobacco Type: cigarettes ; Smoking End Date: 1985 ; Hx Alcohol Use: No Hx Substance Use: No Review of Systems Review of Systems: Unobtainable due to reduced consciousness Physical Exam Constitutional: + acute distress, + ill appearing, + cachectic and + frail appearing Respiratory: + labored breathing and + uses accessory muscles Auscultation: + diminished lung sounds and + rhonchi Cardiovascular: RRR, no murmur, no edema Gastrointestinal (Abdomen): normal bowel sounds, soft, nontender, no hepatosplenomegaly concave abdomen Skin: no rashes, warm and dry Psychiatric: Orientation: + not alert and + not oriented x 3 Genitourinary: indwelling joseph in place with dark davida urine Results & Data Vital Signs (Past 12 Hours) Vital Signs Temp Pulse Resp BP BP Pulse Ox 04/12/19 07:32 36.5 C 77 18 117/69 96 04/11/19 23:29 37.3 C 97 H 18 144/83 H 100 PG Care Time/CCT Total # of Minutes Spent Total Time Spent with Patient: Total time spent is greater than 50% in coordinat ion of care (as documented) at patient's floor/unit and/or counseling patient: 100 Coding Level of Care Code 63273 Inpt Consult Level 4 Diagnoses Goals of care, counseling/discussion Z71.89 Altered mental status R41.82 Altered mental status type: unspecified 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
--- NOTE | 2019-04-12 10:49 | Hospitalist Progress Note ---
Date of Service April 12, 2019 Assessment & Plan (1) Weakness: * per his daughter, he does not really participate with therapy at [facility] * Aricept stopped for possible side effects of weakness, syncope * Palliative on consult -- appreciate input * Comfort care at this time -- roxanol prn air hunger/pain, ativan prn agitation/restlessness, atropine gtts for oral secretions * To continue to assess the patients stability and continue to have a goal for discharge to a SNF with Hospice service. Patient unable at this time to participate in any therapies or rehabilitation. (2) Atrial fibrillation: * new onset but after discussing with his daughter, has had intermittent tachycardia at times in the past * converted to NSR with metoprolol but then back to paroxysmal afib -- now appears permanent * Increased Lopressor to 100mg BID and Eliquis for anticoagulation, however all oral medications discontinued at this time as patient transitions to comfort (3) CAD (coronary artery disease): * s/p CABG previously. stable. continue medical management with statin, BB and ASA 81g -- stopped as patient transitioning to comfort measures (4) S/P coronary artery stent placement: * D/c'd as above (5) Cardiomyopathy: * managed by Dr. 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 likely continues to aspirate * Was initially going to complete 7 day course of cefepime, but per palliative conversation with daughter, discontinued at this time Dispo: Likely patient will pass away within hours to a day or two. * At this time, patient not stable for transfer out of hospital. Not a GIP candidate at this time as symptoms managed. Should patient live beyond 24-48 hours, reassess for stability for discharge. Supervising Physician Co-Signing Physician Notes PA Supervision Note: I did not personally see or examine the patient today, but I verified all pringle points of ROWDY Smart's assessment and plan with the following exceptions/additions: None Subjective Patient evaluated this morning at bedside. Patient unarousable for more than to make one word and fall back asleep, even to stimulation. Patient with periods of apnea during examination. Did have dose of ativan yesterday for agitation. Per conversation with palliative care/nursing, patient and family moving towards hospice/comfort care. Daughter Estela had conversation with Mrs. Guerrero. Estela -- ([phone]). Will discontinue all labs, medications. No artificial feeding at this time. If patient awakens, may resume these medications. Review of Systems Review of Systems: Unobtainable due to cognitive status and Unobtainable due to reduced consciousness Physical Exam Constitutional: + ill appearing, + cachectic and + frail appearing Eyes: + anicteric sclerae and PERRL Neck: trachea midline, no thyromegaly Respiratory: + labored breathing and + tachypneic Auscultation: + crackles and + rhonchi Cardiovascular: RRR, no murmur, no edema Gastrointestinal (Abdomen): normal bowel sounds, soft, nontender, no hepatosplenomegaly Skin: no rashes, warm and dry Neurologic: + obtunded Psychiatric: A+Ox3, euthymic affect Results & Data Vital Signs (Past 12 Hours) Vital Signs Temp Pulse Resp BP BP Pulse Ox 04/12/19 07:32 36.5 C 77 18 117/69 96 04/11/19 23:29 37.3 C 97 H 18 144/83 H 100 Laboratory Results 04/12/19 04/12/19 Range/Units 08:09 08:09 WBC 11.27 H (4.8-10.8) K/uL RBC 4.35 L (4.7-6.1) M/uL Hgb 13.9 L (14.0-18.0) g/dL Hct 41.3 L (42-52) % MCV 94.9 (80-100) fL MCH 32.0 (25-34) pg MCHC 33.7 (32-36) g/dL RDW Std Deviation 47.1 H (36.4-46.3) fL RDW Coeff of Pranav 13.5 (11.5-14.5) % Plt Count 191 (130-400) K/uL MPV 10.6 H (7.4-10.4) fL Sodium 140 (136-145) mmol/L Potassium 4.0 (3.5-5.1) mmol/L Chloride 108 H (98-107) mmol/L Carbon Dioxide 28 (21-32) mmol/L Anion Gap 4.0 (3-11) BUN 13 (7-18) mg/dl Creatinine 0.50 L (0.6-1.4) mg/dl Est Cr Clr Drug Dosing 112.5 ml/min Est GFR ( Amer) 120.3 Est GFR (Non-Af Amer) 103.8 BUN/Creatinine Ratio 25.5 H (10-20) Glucose 109 H (70-99) mg/dl Calcium 9.8 (8.5-10.1) mg/dl PG Care Time/CCT Total # of Minutes Spent Total Time Spent with Patient: Total time spent is greater than 50% in coor dination of care (as documented) at patient's floor/unit and/or counseling patient: Coding Level of Care Code 16777 Subseq Hosp Care Lvl 2 Diagnoses Weakness R53.1 Atrial fibrillation I48.91 Atrial fibrillation type: unspecified CAD (coronary artery disease) I25.10 S/P coronary artery stent placement Z95.5 Cardiomyopathy I42.9 Essential hypertension I10 Altered mental status R41.82 Altered mental status type: unspecified Parkinsonism G20 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
[2019-04-12] MEDS: MoRPHine SULFATE 5 MG/0.25 ML UDP PO PRN ×2 (16:10→19:08)
[2019-04-12] MEDS ORDERED: ACETAMINOPHEN 1,000 MG/100 ML VIAL IV ONE (17:30)
[2019-04-12] MEDS: ATROPINE SULFATE 1% OP SOLN 5 ML BTL SL PRN ×2 (19:07→19:08)
[2019-04-13] MEDS: ATROPINE SULFATE 1% OP SOLN 5 ML BTL SL PRN (02:15)
[2019-04-13] MEDS: MoRPHine SULFATE 5 MG/0.25 ML UDP PO PRN ×2 (09:00→15:43)
[2019-04-13] MEDS: LORazepam 0.25 MG/0.5 ML VIAL IV PRN (13:12)
--- NOTE | 2019-04-13 16:07 | Hospitalist Progress Note ---
Date of Service April 13, 2019 Assessment & Plan (1) Weakness: * per his daughter, he does not really participate with therapy at [facility] * Aricept stopped for possible side effects of weakness, syncope * Palliative on consult -- appreciate input * Comfort care at this time -- roxanol prn air hunger/pain, ativan prn agitation/restlessness, atropine gtts for oral secretions -- asked nursing to provide dose of ativan this morning for agitation * To continue to assess the patients stability and continue to have a goal for discharge to a SNF with Hospice service. Patient unable at this time to participate in any therapies or rehabilitation. * Will re-evaluate in morning to see if appropriate for discharge on hospice (2) Atrial fibrillation: * new onset but after discussing with his daughter, has had intermittent tachycardia at times in the past * converted to NSR with metoprolol but then back to paroxysmal afib -- now appears permanent * Increased Lopressor to 100mg BID and Eliquis for anticoagulation, however all oral medications discontinued at this time as patient transitions to comfort (3) CAD (coronary artery disease): * s/p CABG previously. stable. continued medical management with statin, BB and ASA 81g -- stopped as patient transitioning to comfort measures (4) S/P coronary artery stent placement: * D/c'd as above (5) Cardiomyopathy: * managed by Dr. 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 likely continues to aspirate * Was initially going to complete 7 day course of cefepime, but per palliative conversation with daughter, discontinued at this time Dispo: Likely patient will pass away within day or two. * At this time, patient not stable for transfer out of hospital. Not a GIP candidate at this time as symptoms managed. Should patient live beyond 24-48 hours, reassess for stability for discharge. Supervising Physician Co-Signing Physician Notes ROWDY Supervision Note: I did not personally see or examine the patient today, but I verified all pringle points of ROWDY Smart's assessment and plan with the following exceptions/additions: None Subjective Patient evaluated this morning with daughter Estela at bedside. Patient still lethargic, however does provide one word answers. Responded hello when asked. Stated no when asked about pain. Per daughter, patient did seem to be more figity this morning and had been pulling at his catheter. She states he does appear comfortable outside of that. States she still wants to ensure he is comfortable. Discussed that we will re- address daily and if patient seems to be stable/improved tomorrow, would consider discharge on hospice. All questions/concerns addressed. Review of Systems Review of Systems: Unobtainable due to cognitive status Physical Exam Constitutional: + ill appearing, + cachectic and + frail appearing Eyes: + anicteric sclerae and PERRL ENMT: dry mm Neck: trachea midline, no thyromegaly Respiratory: + uses accessory muscles; no respiratory distress Auscultation: + diminished lung sounds and + rhonchi Cardiovascular: RRR, no murmur, no edema Gastrointestinal (Abdomen): normal bowel sounds, soft, nontender, no hepatosplenomegaly Skin: no rashes, warm and dry Neurologic: deep tendon reflexes 2+ bilaterally Psychiatric: A+Ox3, euthymic affect Genitourinary: joseph draining dark yellow urine PG Care Time/CCT Total # of Minutes Spent Total Time Spent with Patient: Total time spent is greater than 50% in coordination of care (as documented) at patient's floor/unit and/or counseling patient: Coding Level of Care Code 46549 Subseq Hosp Care Lvl 2 Diagnoses Weakness R53.1 Atrial fibrillation I48.91 Atrial fibrillation type: unspecified CAD (coronary artery disease) I25.10 S/P coronary artery stent placement Z95.5 Cardiomyopathy I42.9 Essential hypertension I10 Altered mental status R41.82 Altered mental status type: unspecified Parkinsonism G20 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
--- NOTE | 2019-04-13 16:44 | Palliative Care Progress Note ---
Date of Service April 13, 2019 Assessment & Plan (1) Comfort measures only status: -Patient is comfort measures only. -Appears comfortable at this time. Had a dose of Ativan this morning, two doses of Roxanol today. -Patient is currently stable for discharge to SNF with hospice, but this is subject to change quickly. -Will reassess tomorrow and if he continues to be stable, can be transferred to SNF. -Please continue to assess for signs of pain, discomfort or anxiety/agitation and medicate apporpriately. 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 Patient woke up easily when I said his name. Stated he is in hospital. Stated he has no pain or discomfort. Review of Systems Review of Systems: No pain, no discomfort, no N/V. Physical Exam Constitutional: + ill appearing and + thin; no acute distress ENMT: external ear and nose normal, oropharynx normal Respiratory: normal respiratory effort Auscultation: + diminished lung sounds Cardiovascular: Rate/Rhythm: regular rate and regular rhythm Extremities: no edema Gastrointestinal (Abdomen): Inspection/Auscultation: normal bowel sounds Percussion/Palpation: abdomen soft Neurologic: moves all extremities and awake Psychiatric: Orientation: oriented to person and oriented to place; + not oriented to time Coding Level of Care Code 49302 Subseq Hosp Care Lvl 2 Diagnoses Comfort measures only status Z51.5 Altered mental status R41.82 Altered mental status type: unspecified 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 (1) Altered mental status Altered mental status type: unspecified Qualified Code(s): R41.82 - Altered mental status, unspecified
[2019-04-14] MEDS: LORazepam 0.25 MG/0.5 ML VIAL IV PRN ×5 (01:06→23:55)
[2019-04-14] MEDS: MoRPHine SULFATE 5 MG/0.25 ML UDP PO PRN ×2 (09:45→23:59)
--- NOTE | 2019-04-14 10:24 | Hospitalist Progress Note ---
Date of Service April 14, 2019 Assessment & Plan (1) Weakness: * per his daughter, he does not really participate with therapy at [facility] * Aricept stopped for possible side effects of weakness, syncope * Palliative on consult -- appreciate input * Comfort care at this time -- roxanol prn air hunger/pain, ativan prn agitation/restlessness, atropine gtts for oral secretions -- asked nursing to provide dose of ativan this morning for agitation * To continue to assess the patients stability and continue to have a goal for discharge to a SNF with Hospice service. Patient unable at this time to participate in any therapies or rehabilitation. * As patient more awake/alert this morning, will need to discuss with daughter about possible discharge to SNF with hospice service at this time. Patient stable for discharge at this time --> accepted and will be transported to [place] tomorrow (2) Atrial fibrillation: * new onset but after discussing with his daughter, has had intermittent tachycardia at times in the past * converted to NSR with metoprolol but then back to paroxysmal afib -- now appears permanent * Increased Lopressor to 100mg BID and Eliquis for anticoagulation, however all oral medications discontinued at this time as patient transitions to comfort -- will readdress with daughter if patient able to take oral medications (will need crushed if so) * Will resume lopressor at 50mg BID and eliquis -- if unable to swallow, daughter ok without administering (3) CAD (coronary artery disease): * s/p CABG previously. stable. continued medical management with statin, BB and ASA 81g -- stopped as patient transitioning to comfort measures (4) S/P coronary artery stent placement: * D/c'd as above (5) Cardiomyopathy: * managed by Dr. 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 likely continues to aspirate * Was initially going to complete 7 day course of cefepime, but per palliative conversation with daughter, discontinued at this time Dispo: As patient more alert today, pursued SNF with hospice -- CM following --> to be transported to [place] tomorrow Supervising Physician Co-Signing Physician Notes PA Supervision Note: I did not personally see or examine the patient today, but I verified all pringle points of ROWDY Smart's assessment and plan with the following exceptions/additions: None Subjective Patient evaluated at bedside this morning. Resting comfortably. More alert today. Denies pain, chest pain, shortness of breath, abdominal pain at this time. Discussed plan that daughter would be here later today and we will plan to move forward with discharge with transition to hospice at this time. Will resume metoprolol and eliquis. If patient able to take, will continue. If unable, ok to non-admin. Review of Systems Review of Systems: Unobtainable due to cognitive status Constitutional: no fever and no chills Ear, Nose, Mouth, Throat: difficulty eating Respiratory: no cough and no dyspnea Cardiovascular: no chest pain and no palpitations Gastrointestinal: no abdominal pain and no nausea Neurologic: no numbness and no headache(s) Endocrine: no cold intolerance and no heat intolerance Physical Exam Constitutional: + cachectic and + frail appearing Eyes: + anicteric sclerae and PERRL Neck: trachea midline, no thyromegaly Respiratory: no respiratory distress and no labored breathing Auscultation: + diminished lung sounds; no crackles and no wheezes Cardiovascular: RRR, no murmur, no edema Gastrointestinal (Abdomen): normal bowel sounds, soft, nontender, no hepatosplenomegaly Skin: no rashes, warm and dry Neurologic: deep tendon reflexes 2+ bilaterally Psychiatric: Orientation: alert and oriented to person Lymphatic: no cervical or axillary lymphadenopathy PG Care Time/CCT Total # of Minutes Spent Total Time Spent with Patient: Total time spent is greater than 50% in coordination of care (as documented) at patient's floor/unit and/or counseling patient: Coding Level of Care Code 64248 Subseq Hosp Care Lvl 1 Diagnoses Weakness R53.1 Atrial fibrillation I48.91 Atrial fibrillation type: unspecified CAD (coronary artery disease) I25.10 S/P coronary artery stent placement Z95.5 Cardiomyopathy I42.9 Essential hypertension I10 Altered mental status R41.82 Altered mental status type: unspecified Parkinsonism G20 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
--- NOTE | 2019-04-14 13:02 | Palliative Care Progress Note ---
Date of Service April 14, 2019 Assessment & Plan (1) Comfort measures only status: -Patient is comfort measures only. -Appears comfortable at this time. No Ativan or Roxanol since yesterday. -Patient is currently stable for discharge to SNF with hospice. Daughter Estela agrees. -financial aid manager present for part of conversation. Plan is for referral to [place], and referral to hospice agency. Patient's daughter does not want him to return to [facility]. -Discussed comfort medications with Estela. She is comfortable with everything. Can restart patient's metoprolol if he is able to take oral meds-- discussed with Laila Smart PA-C. -Please contact us with any further palliative care needs. 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 Did note some picking at the air. NO distress. Talked at length with patient's daughter, Estela. Review of Systems Review of Systems: No pain, no discomfort, no N/V. Physical Exam Constitutional: + ill appearing and + thin; no acute distress ENMT: external ear and nose normal, oropharynx normal Respiratory: normal respiratory effort Auscultation: + diminished lung sounds Cardiovascular: Rate/Rhythm: regular rate and regular rhythm Extremities: no edema Gastrointestinal (Abdomen): Inspection/Auscultation: normal bowel sounds Percussion/Palpation: abdomen soft Neurologic: moves all extremities and awake Psychiatric: Orientation: oriented to person and oriented to place; + not oriented to time Coding Level of Care Code 29653 Subseq Hosp Care Lvl 3 Diagnoses Comfort measures only status Z51.5 Altered mental status R41.82 Altered mental status type: unspecified 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 (1) Altered mental status Altered mental status type: unspecified Qualified Code(s): R41.82 - Altered mental status, unspecified
--- NOTE | 2019-04-14 18:56 | Discharge Summary ---
Date of Service April 15, 2019 Admission HPI Per Admitting Provider Patient is a 78-year-old male with a history of CAD/CABG, mild systolic CHF, hypertension, dyslipidemia, dementia Presented with weakness and lethargy. History obtained from ED physician and RN, attempted to call [facility] facility twice as well as patient's family but they are not available at this time, will continue to reach them. Apparently patient has been observed to be weak and lethargic for the past few d ays. He used to be mostly independent with activities of daily living but for the past few days have been noted to be sluggish, weak. EMS was called today, blood pressure systolic upon arrival was apparently in the 70s, patient was given 1 L of IV fluid bolus. At the ED, blood pressure was systolic 90s, was given another 1 L of IV fluid bolus, with improvement of the systolic BP 109. Hospitalist consulted for admission On exam, the patient is seen sleeping but easily awakened with verbal stimuli. He is not oriented x3, but per RN's report from [facility] this is his baseline. He is conversant, tries to answer questions, speaks in sentences with no effort. He denies having any active shortness of breath, chest pain, headache, dizziness, focal weakness or numbness, abdominal pain. He denies any other symptoms states he feels fine overall. CT head: No acute CVA EKG shows atrial fibrillation, rate controlled. Patient does not have any history of atrial fibrillation. Primary Care Provider: [facility] Admission Exam Per Admitting Provider General- oriented x 0, not in distress, speaks in sentences with no effort or accessory muscle use Head- atraumatic Eyes- PERRL, EOMI, anicteric ENT- oropharynx clear Positive dry oral mucosa Neck- supple, no JVD, no adenopathy, no thyromegaly; carotids +2/2, no bruits appreciated Lungs- clear to auscultation bilaterally, no rales/wheezes Heart- normal rate, irregularly irregular rhythm; no murmur, no gallop, no rub appreciated Abdomen- normal bowel sounds, nondistended, soft, nontender, no masses or hepatosplenomegaly Extremities- no pretibial edema, no calf tenderness; peripheral pulses intact Neuro- alert, oriented x 0; CN 2-12 grossly intact; motor 5/5 bilaterally;sensation 100% on all extremities; no other gross focal neurologic deficits Skin- warm & dry Principal Diagnosis Altered Mental Status, Dementia Discharge Exam Constitutional + cachectic Eyes + anicteric sclerae and PERRL Neck trachea midline, no thyromegaly Respiratory no respiratory distress and no labored breathing Auscultation: + diminished lung sounds; no crackles and no wheezes Cardiovascular RRR, no murmur, no edema Gastrointestinal (Abdomen) normal bowel sounds, soft, nontender, no hepatosplenomegaly Musculoskeletal Head/Neck/Chest: normocephalic and head atraumatic Skin no rashes, warm and dry Neurologic deep tendon reflexes 2+ bilaterally Psychiatric Orientation: alert and oriented to person Genitourinary joseph draining yellow urine Lymphatic no cervical or axillary lymphadenopathy Discharge Data Allergies Allergy/AdvReac Type Severity Reaction Status Date / Time fluvastatin Allergy Unknown Unknown Verified 04/07/19 15:55 simvastatin [From Zocor] Allergy Unknown Unknown Verified 04/07/19 15:55 atorvastatin Allergy Unknown Verified 04/07/19 15:55 Consultations 04/04/19 14:35 ED Decision to Admit Stat 04/04/19 17:16 Consult Neurology Routine 04/04/19 17:40 Consult Cardiology Routine 04/11/19 16:17 Consult Palliative Care Routine Ordered Studies 04/04/19 11:56 CT abd pelvis wo con Stat CT head/brain wo con Stat CXR 04/04/19 17:40 MR brain wo con Stat 04/07 CXR Hospital Course (1) Weakness: * Admitted for worsening weakness * Per his daughter, he does not really participate with therapy at [facility] * Aricept stopped for possible side effects of weakness, syncope -- did have some increase in alert/awakened as effects wore off * Palliative on consult * Comfort care - Roxanol prn air hunger/pain, Ativan prn agitation/restlessness, atropine gtts for oral secretions -- asked nursing to provide dose of ativan this morning for agitation * As patient more awake/alert this morning, discharge to SNF with hospice service at this time. Patient stable for discharge at this time --> accepted and to be transported to [facility] (2) Atrial fibrillation: * new onset but after discussing with his daughter, has had intermittent tachycardia at times in the past * converted to NSR with metoprolol but then back to paroxysmal afib -- now appears permanent * Increased Lopressor to 100mg BID and Eliquis for anticoagulation, however all oral medications discontinued at that time as patient transitions to comfort -- resumed metoprolol 50mg BID and eliquis if patient able to swallow. If not, daughter ok without administering (3) CAD (coronary artery disease): * s/p CABG previously. stable. continued medical management with statin, BB and ASA 81g -- stopped initially as patient transitioning to comfort measures, however per conversation with daughter, resumed metoprolol, asa as tolerated by patient. She stated if he is unable to take, she would be ok with these being discontinued. (4) S/P coronary artery stent placement: * D/c'd as above (5) Cardiomyopathy: * managed by Dr. 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 likely will continue to aspirate * Was initially going to complete 7 day course of cefepime, but per palliative conversation with daughter, discontinued at that time prior to completing 7 days (had received 10 doses for total of 5 days, discontinued on 04/12/19) Dispo: Patient discharged to [facility]. To continue joseph. Continue metoprolol 50mg BID, eliquis 5mg BID, asa 81mg as tolerated by patient. Total Time Total Time Spent Total Time Spent (In Minutes): 60 Discharge Plan Discharge Items Patient Disposition[facility] Reason For Visit: Lethargy Discharge Diagnosis: Dementia, Altered Mental Status, Aspiration Pneumonia Condition on Discharge: Fair Goals: You have been hospitalized for an acute medical problem. During your stay at [facility], we have made an effort to correct the problem that brought you to the hospital while keeping you as comfortable as possible. Medications were used to bring your condition under control and your discharge instructions will include directions for any medications you should take after leaving the hospital. Activity: Resume your previous activity Non-emergency contact: Primary Care Provider Call non-emergency contact if: you have any medication questions Follow-up/Referrals: Rose Marie, [Primary Care Provider] - Diet: Heart Healthy Diet Texture: Pureed (blended smooth) Diet Comment: Alternate solids/liquids. single bites. small sips. slow rate. NO STRAWS Addtl Attending Provider Instructions: You are being discharged to [facility] For diet, please make sure you you are fully alert/awake and upright, alternate solids and liquids, crush medications as indicated and utilize a carrier, supervise meals. Single bites/small sips/slow rate. NO STRAWS You may continue the metoprolol and eliquis as tolerated. You may continue with ativan prn agitation/anxiety and roxanol prn pain/air hunger. Continue joseph for comfort. Please follow up with medical provider at facility. It has been a pleasure being a part of the medical team providing for you while you were hospitalized. Take care! Pending Studies at Discharge: No Stand-Alone Forms: My [facility] Skilled Items Patient informed of condition?: Yes DNR: Yes Discharge Level of Care: Skilled Communicable Disease: No Discharge Prognosis: Stable Lines: None Urinary Catheter: Yes Medications and DC Order Prescriptions: New morphine concentrate 100 mg/5 mL (20 mg/mL) Solution 5 mg PO Q2H PRN (Reason: pain) Qty: 15 RF: 0 metoprolol tartrate 50 mg Tablet 50 mg PO BID 30 Days Qty: 60 RF: 0 atropine 1 % Drops 4 drp sublingual Q1H PRN (Reason: secretions) 30 Days Qty: 2 RF: 0 Eliquis 5 mg Tablet 5 mg PO BID 30 Days Qty: 60 RF: 0 lorazepam [Ativan] 0.5 mg tablet 0.5 mg PO Q3H PRN (Reason: anxiety) Qty: 14 RF: 0 Continued aspirin 325 mg tablet 325 mg PO DAILY RF: 0 acetaminophen 325 mg capsule 650 mg PO Q4H PRN (Reason: Pain and Fever) RF: 0 diclofenac sodium 1 % Gel 1 % TOPICAL BID PRN (Reason: Arthritis Pain) RF: 0 Discontinued atenolol 25 mg tablet 25 mg PO DAILY RF: 0 cyanocobalamin (vitamin B-12) 1,000 mcg/mL solution 100 mcg SQ .COMPLEX RF: 0 pravastatin 40 mg tablet 40 mg PO HS RF: 0 donepezil 5 mg tablet 5 mg PO HS RF: 0 risperidone 1 mg tablet 0.5 mg PO BID RF: 0 ibuprofen 400 mg tablet 400 mg PO Q6H PRN (Reason: Pain and Inflammation) RF: 0 cholecalciferol (vitamin D3) [Vitamin D3] 2,000 unit Tablet 2,000 unit PO DAILY RF: 0 melatonin 10 mg Tablet 10 mg PO HS PRN (Reason: Insomnia) RF: 0 Discharge Orders: Discharge Order (Routine); Ordered 04/15/19 Ordered By: Doris Smart Admission Data Admit Date/Time: 04/04/19 15:55 Attending Provider: Gissell Davila Admit Provider: Clarke Desir Primary Care Provider: Chipce, Other Providers: Tesfaye Lyon [place] ; Guilherme Quigley [facility] ; Clarke Desir ; Douglas Monterroso ; Joseph Pizano Other Interventions: Discharge Summary Assessment (RN) Last Done: 04/15/19 11:35 Supervising Physician Co-Signing Physician Notes PA Supervision Note: I personally saw and examined the patient. I verified all pringle points and agree with ROWDY Smart with the following exceptions and/or additions: Pt denies pain, appears comfortable. Denies SOB. Is lethargic but does wake up and answer questions. VSS Appears cachectic, NAD ANicteric sclerae irreg irreg, normal rate no mgr CTAB no wcr Abd scaphoid, +BS, soft NT ND Ext no edema Skin no rashes 78 yo male here with aspiration pPNA, hypotension, failure to thrive. 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
[2019-04-14] MEDS: APIXABAN 5 MG TABLET PO SCH (21:31)
[2019-04-14] MEDS: METOPROLOL TARTRATE 50 MG TAB PO SCH (21:31)
[2019-04-15] MEDS: MoRPHine SULFATE 5 MG/0.25 ML UDP PO PRN ×2 (04:54→15:31)
[2019-04-15] MEDS: METOPROLOL TARTRATE 50 MG TAB PO SCH (08:00)
[2019-04-15] MEDS: LORazepam 0.25 MG/0.5 ML VIAL IV PRN ×2 (08:00→12:47)
[2019-04-15] MEDS: APIXABAN 5 MG TABLET PO SCH (08:00)
== END 2019-04-15 16:25 | disposition hospice, inpatient (51) | DRG 640 ==
LOC: ED 11:33 → 2E 15:55 → SUATTDRO 15:55 → 2E 17:00 → 3N 04-10 13:07